=== PATIENT | male | born 1975 | race Asian ===

== ENCOUNTER 2020-07-24 08:32 | Outpatient (REF) | payer OTHER, SELFPAY | END 2020-07-24 08:33 | disposition home or self-care (01) | LOC: HO.LAB 08:32 | PROVIDERS: Visit Provider Internal Medicine | DX: Z20.828 Contact with and (suspected) exposure to other viral communicable diseases (principal) | CPT/HCPCS: 87635 ==

== ENCOUNTER 2021-05-07 07:47 | Outpatient (REF) | payer OTHER, SELFPAY ==
[2021-05-07 08:32] LABS: Hematocrit 38.8 % (42-52); Hemoglobin 12.7 g/dl (14.0-18.0); Mean Corpuscular HGB Conc 32.7 g/dl (31.0-36.0); Mean Corpuscular Hemoglobin 30.8 pg (27.0-33.0); Mean Corpuscular Volume 94.2 fL (80-98); Mean Platelet Volume 9.9 fL (9.4-12.4); Platelet Count 293 X10*3/uL (160-400); Red Blood Count 4.12 X10*6/uL (4.60-5.80); Red Cell Distribution Width 12.2 % (11.0-16.0); White Blood Count 5.1 X10*3/uL (4.8-10.8)
[2021-05-07 08:43] LABS: Estimated Average Glucose 111 mg/dL; Hemoglobin A1c % 5.5 %
[2021-05-07 08:54] LABS: Alanine Aminotransferase 14 U/L (0-40); Albumin Level 4.8 g/dL (3.5-5.0); Alkaline Phosphatase 46 U/L (39-117); Anion Gap 13 (12-20); Aspartate Amino Transferase 24 U/L (5-37); Bilirubin Total 0.3 mg/dL (0.0-1.0); Blood Urea Nitrogen 33 mg/dL (9-16); Calcium 10.1 mg/dL (8.4-10.2); Carbon Dioxide 26 mmol/L (22-29); Chloride 106 mmol/L (96-108); Cholesterol 224 mg/dL; Estimated Glomerular Filt Rate 55; Glucose Random 91 mg/dL (60-115); HDL Cholesterol 90 mg/dL; LDL Cholesterol Calculated 121 mg/dl; Potassium 4.5 mmol/L (3.3-5.1); Sodium 140 mmol/L (135-145); Total Protein 7.5 g/dL (6.5-8.0); Triglycerides 66 mg/dL
[2021-05-08 19:51] LABS: LDL Cholesterol Direct 111 mg/dL (<100)
== END 2021-05-07 07:48 | disposition home or self-care (01) ==
LOC: HO.LAB 07:47
PROVIDERS: Visit Provider Internal Medicine
DX: I10 Essential (primary) hypertension (principal)
CPT/HCPCS: 36415; 80053; 80061; 83036; 83721; 85027

== ENCOUNTER 2021-06-07 10:16 | Outpatient (REF) | payer OTHER, SELFPAY ==
[2021-06-07 11:37] LABS: Anion Gap 13 (12-20); Blood Urea Nitrogen 28 mg/dL (9-16); Calcium 9.8 mg/dL (8.4-10.2); Carbon Dioxide 25 mmol/L (22-29); Chloride 105 mmol/L (96-108); Estimated Glomerular Filt Rate > 60; Glucose Random 95 mg/dL (60-115); Potassium 4.4 mmol/L (3.3-5.1); Sodium 139 mmol/L (135-145)
[2021-06-07 11:42] LABS: Creatinine Urine 20.58 mg/dL; Microalbumin Urine < 5.0 mg/L; Sodium Urine Random < 20.0 mmol/L; Total Protein Urine Random < 7 mg/dL (<12)
== END 2021-06-07 10:17 | disposition home or self-care (01) ==
LOC: HO.LAB 10:16
PROVIDERS: PCP Nurse Practitioner; Visit Provider Internal Medicine
DX: I10 Essential (primary) hypertension (principal)
CPT/HCPCS: 36415; 80048; 82043; 84156; 84300

== ENCOUNTER 2022-09-14 07:27 | Outpatient (REF) | payer OTHER, SELFPAY ==
--- NOTE | ~2022-09-14 | MR_ITS ---
EXAMINATION: MR ANKLE WITHOUT CONTRAST, LEFT CLINICAL INFORMATION: Retrocalcaneal bursitis. The Achilles tendon. Evaluate for calcaneal stress fracture. COMPARISON: None TECHNIQUE: MRI of the left ankle is performed without contrast and high field MRI scanner. FINDINGS: SUBCUTANEOUS SOFT TISSUES: Normal. MUSCLES/TENDONS: Achilles: There is a small linear focus of increased signal in the central 3rd portion of the Achilles tendon at the calcaneal attachment. This measures approximately 1 mm transverse and 8.5 mm craniocaudal. There is some localized edema likely reactive at the level of this portion of the Achilles attachment. No fracture line. Otherwise there is some minimal heterogeneity throughout the Achilles tendon compatible with tendinosis. No additional focal abnormality. There is minimal overlying edema in the adjacent subcutaneous soft tissues. Findings compatible with a small focus of linear intrasubstance partial tearing of the Achilles at the calcaneal attachment with reactive edema in the calcaneus. PLANTAR FASCIA: Normal. NEUROVASCULAR STRUCTURES/TARSAL TUNNEL: Ligaments: Normal. BONE/CARTILAGE: Calcaneal edema as above. Otherwise bone and joints are unremarkable. MR/MR ankle LT wo con IMPRESSION: Small focal linear intrasubstance partial tear of the distal Achilles tendon at the calcaneal attachment. There is some localized edema in the calcaneus in this area of calcaneal attachment likely reactive to the tear. No fracture line demonstrated.
== END 2022-09-14 07:28 | disposition home or self-care (01) ==
LOC: HO.MRI 07:27
PROVIDERS: PCP Internal Medicine; Visit Provider Physician Assistant
DX: M77.52 Other enthesopathy of left foot and ankle (principal)
CPT/HCPCS: 73721

== ENCOUNTER 2023-01-04 08:45 | Outpatient (REF) | payer OTHER, SELFPAY ==
--- NOTE | ~2023-01-04 | XR_ITS ---
EXAMINATION: Left knee and bilateral knee standing. CLINICAL INDICATIONS: Pain. COMPARISON: None. TECHNIQUE: AP bilateral knee standing and left knee 2 views. FINDINGS: AP bilateral knee: There is minimal loss of medial compartment joint space but otherwise unremarkable. The lateral compartment joint space is normal. No bony abnormality seen. Left knee: The lateral compartment joint space is preserved. No bony erosive changes. The soft tissues are normal. XR/XR knee LT 2V IMPRESSION: Minimal loss of medial compartment joint space but otherwise unremarkable lateral knee compartment. The lateral and sunrise view left knee is unremarkable.
--- NOTE | ~2023-01-04 | MR_ITS ---
EXAMINATION: MR KNEE WITHOUT CONTRAST, LEFT CLINICAL INFORMATION: Effusion. Patient reports pain, swelling, injury. COMPARISON: X-ray 01/04/2023 TECHNIQUE: MRI of the knee without contrast was performed using routine sequences on a high-field scanner. FINDINGS: MENISCI: Medial Meniscus: Intact Lateral Meniscus: There is a horizontally oriented tear in the superior aspect of the body. Subjacent small parameniscal cyst. Degenerative signal in the anterior horn, with possible tear propagating into the anterior horn. Signal changes extend to the undersurface, from possible undersurface tearing. Small cystic focus anteriorly, suggestive of parameniscal cyst. Anterior root fissuring. LIGAMENTS: Cruciate: Increased signal diffusely in the ACL could reflect mucoid degeneration and/or sprain/partial tear. . Intact PCL. Collateral: Partial tear MCL, more prominently involving the proximal ligament extending to the level of the joint. There is prominent abnormal signal, ill-definition irregularity of the ligament, with edema in the medial soft tissues. LCL complex is intact. EXTENSOR MECHANISM: Intact ARTICULAR CARTILAGE/BONE: No significant cartilage loss in 3 compartments. No evidence of fracture. JOINT FLUID AND BURSAE: Moderate joint effusion. No significant Avendano's cyst.. MR/MR knee LT wo con IMPRESSION: 1. Tear of the body of the lateral meniscus. Degenerative signal in the anterior horn, with possible undersurface tearing. Anterior root fissuring. Small parameniscal cyst anteriorly. 2. ACL findings could reflect mucoid degeneration and/or sprain/partial tear. 3. Partial tear MCL. 4. Moderate joint effusion.
--- NOTE | ~2023-01-04 | XR_ITS ---
EXAMINATION: Left knee and bilateral knee standing. CLINICAL INDICATIONS: Pain. COMPARISON: None. TECHNIQUE: AP bilateral knee standing and left knee 2 views. FINDINGS: AP bilateral knee: There is minimal loss of medial compartment joint space but otherwise unremarkable. The lateral compartment joint space is normal. No bony abnormality seen. Left knee: The lateral compartment joint space is preserved. No bony erosive changes. The soft tissues are normal. XR/XR knee standing BI IMPRESSION: Minimal loss of medial compartment joint space but otherwise unremarkable lateral knee compartment. The lateral and sunrise view left knee is unremarkable.
[2023-01-04 16:15] LABS: Hematocrit 36.2 % (42.0-52.0); Hemoglobin 12.1 g/dl (14.0-18.0); Mean Corpuscular HGB Conc 33.4 g/dl (31.0-36.0); Mean Corpuscular Hemoglobin 31.3 pg (27.0-33.0); Mean Corpuscular Volume 93.5 fL (80.0-98.0); Mean Platelet Volume 9.8 fL (9.4-12.4); Platelet Count 342 X10*3/uL (160-400); Red Blood Count 3.87 X10*6/uL (4.60-5.80); Red Cell Distribution Width 12.6 % (11.0-16.0); White Blood Count 6.2 X10*3/uL (4.8-10.8)
[2023-01-04 16:19] LABS: Estimated Average Glucose 108 mg/dL; Hemoglobin A1c % 5.4 %
[2023-01-04 16:57] LABS: Alanine Aminotransferase 12 U/L (0-40); Albumin Level 4.3 g/dL (3.5-5.0); Alkaline Phosphatase 52 U/L (39-117); Anion Gap 13 (12-20); Aspartate Amino Transferase 18 U/L (5-37); Bilirubin Direct 0.2 mg/dL (0.0-0.5); Bilirubin Total 0.5 mg/dL (0.0-1.0); Blood Urea Nitrogen 25 mg/dL (9-16); Calcium 9.6 mg/dL (8.4-10.2); Carbon Dioxide 25 mmol/L (22-29); Chloride 106 mmol/L (96-108); Estimated Glomerular Filt Rate 40; Glucose Random 104 mg/dL (60-115); Potassium 3.9 mmol/L (3.3-5.1); Sodium 140 mmol/L (135-145); Total Protein 6.9 g/dL (6.5-8.0)
[2023-01-04 17:08] LABS: TSH reflex Free T4 0.88 uIU/mL (0.32-4.0)
== END 2023-01-04 08:46 | disposition home or self-care (01) ==
LOC: HO.HOSX 08:45
PROVIDERS: Absent Provider Internal Medicine; PCP Internal Medicine; Visit Provider Orthopaedic Surgery
DX: Z00.00 Encounter for general adult medical examination without abnormal findings (principal); M25.462 Effusion, left knee; M25.562 Pain in left knee; D64.9 Anemia, unspecified; R73.9 Hyperglycemia, unspecified
CPT/HCPCS: 36415; 73560; 73565; 73721; 80048; 80076; 83036; 84443; 85027

== ENCOUNTER 2023-03-12 10:30 | Outpatient (REF) | payer OTHER, SELFPAY ==
--- NOTE | ~2023-03-12 | US_ITS ---
EXAMINATION: ULTRASOUND RENAL WITH DOPPLER CLINICAL INFORMATION: Kidney cyst. Hypertension. COMPARISON: Renal ultrasound 11/16/2019. TECHNIQUE: Real-time grayscale, color Doppler, and duplex Doppler evaluation of the kidneys and renal vasculature was performed. FINDINGS: RENAL MEASUREMENTS: Right: 9.4 x 4.4 x 4.7 cm (Sag x AP x TV) Left: 10.6 x 6.5 x 5.7 cm (Sag x AP x TV) The renal parenchyma appears normal. No hydronephrosis or nephrolithiasis. Complex 2.3 cm cyst in the mid to upper left kidney has increased in size measuring 2.3 x 2.0 x 1.9 cm compared to 1.3 x 1.2 x 1.1 cm. DOPPLER INTERROGATION: AORTA: Mid aorta: 96 cm/sec RIGHT MAIN RENAL ARTERY: Proximal: 143 cm/sec Mid: 153 cm/sec Distal: 157 cm/sec LEFT MAIN RENAL ARTERY: Proximal: 152 cm/sec Mid: 143 cm/sec Distal: 132 cm/sec RENAL-AORTIC RATIO (RAR): Right: 1.63 Left: 1.58 SEGMENTAL RESISTIVE INDICES: Right: 0.56-0.61 Left: 0.48-0.56 RENAL VEINS: Right: Patent with normal waveform. Left: Patent with normal waveform. US/US renal doppler IMPRESSION: Increased size of complex cyst in the mid left kidney. Recommend CT or MR abdomen without and with contrast renal mass protocol for further characterization. No Doppler evidence of hemodynamically significant renal artery stenosis.
--- NOTE | ~2023-03-12 | US_ITS ---
EXAMINATION: ULTRASOUND RENAL WITH DOPPLER CLINICAL INFORMATION: Kidney cyst. Hypertension. COMPARISON: Renal ultrasound 11/16/2019. TECHNIQUE: Real-time grayscale, color Doppler, and duplex Doppler evaluation of the kidneys and renal vasculature was performed. FINDINGS: RENAL MEASUREMENTS: Right: 9.4 x 4.4 x 4.7 cm (Sag x AP x TV) Left: 10.6 x 6.5 x 5.7 cm (Sag x AP x TV) The renal parenchyma appears normal. No hydronephrosis or nephrolithiasis. Complex 2.3 cm cyst in the mid to upper left kidney has increased in size measuring 2.3 x 2.0 x 1.9 cm compared to 1.3 x 1.2 x 1.1 cm. DOPPLER INTERROGATION: AORTA: Mid aorta: 96 cm/sec RIGHT MAIN RENAL ARTERY: Proximal: 143 cm/sec Mid: 153 cm/sec Distal: 157 cm/sec LEFT MAIN RENAL ARTERY: Proximal: 152 cm/sec Mid: 143 cm/sec Distal: 132 cm/sec RENAL-AORTIC RATIO (RAR): Right: 1.63 Left: 1.58 SEGMENTAL RESISTIVE INDICES: Right: 0.56-0.61 Left: 0.48-0.56 RENAL VEINS: Right: Patent with normal waveform. Left: Patent with normal waveform. US/US retroperitoneal limited IMPRESSION: Increased size of complex cyst in the mid left kidney. Recommend CT or MR abdomen without and with contrast renal mass protocol for further characterization. No Doppler evidence of hemodynamically significant renal artery stenosis.
== END 2023-03-12 10:31 | disposition home or self-care (01) ==
LOC: HO.US 10:30
PROVIDERS: PCP Internal Medicine; Visit Provider Internal Medicine Nephrology
DX: N28.1 Cyst of kidney, acquired (principal); I10 Essential (primary) hypertension
CPT/HCPCS: 76775; 93975

== ENCOUNTER 2023-03-16 16:45 | Outpatient (REF) | payer OTHER, SELFPAY ==
[2023-03-16 17:57] LABS: Anion Gap 13 (12-20); Blood Urea Nitrogen 28 mg/dL (9-16); Calcium 9.8 mg/dL (8.4-10.2); Carbon Dioxide 26 mmol/L (22-29); Chloride 105 mmol/L (96-108); Estimated Glomerular Filt Rate 52; Potassium 4.4 mmol/L (3.3-5.1); Sodium 140 mmol/L (135-145)
== END 2023-03-16 16:46 | disposition home or self-care (01) ==
LOC: HO.LAB 16:45
PROVIDERS: Visit Provider Internal Medicine Nephrology
DX: I10 Essential (primary) hypertension (principal); N28.1 Cyst of kidney, acquired
CPT/HCPCS: 36415; 80051; 82310; 82565; 84520

== ENCOUNTER 2023-04-07 14:20 | Outpatient (REF) | payer OTHER, SELFPAY ==
[2023-04-07 15:29] LABS: Appearance Urine Clear; Color Urine Yellow; Glucose Urine UA Negative (Negative); Leukocyte Esterase Urine Negative (Negative); Nitrite Urine Negative (Negative); PH 6.5 (5.0-9.0); Urine Blood Negative (Negative); Urine Ketones Negative (Negative); Urine Protein Negative (Neg-Trace)
[2023-04-07 16:11] LABS: Anion Gap 13 (12-20); Blood Urea Nitrogen 26 mg/dL (9-16); Calcium 10.2 mg/dL (8.4-10.2); Carbon Dioxide 28 mmol/L (22-29); Chloride 105 mmol/L (96-108); Estimated Glomerular Filt Rate > 60; Potassium 4.1 mmol/L (3.3-5.1); Sodium 142 mmol/L (135-145)
[2023-04-07 16:14] LABS: Microalbum/Creatinine Ratio Ur 13.3 ug/mg cr; Total Protein Urine Random < 7 mg/dL (<12)
== END 2023-04-07 14:21 | disposition home or self-care (01) ==
LOC: HO.LAB 14:20
PROVIDERS: Visit Provider Internal Medicine Nephrology
DX: I10 Essential (primary) hypertension (principal)
CPT/HCPCS: 36415; 80051; 81003; 82043; 82310; 82565; 84156; 84520

== ENCOUNTER 2023-04-19 13:14 | Outpatient (REF) | payer OTHER, SELFPAY ==
[2023-04-19 13:32] LABS: MANUAL DIFF FLAG NO
[2023-04-19 13:40] LABS: Basophils Percent Auto 0.2 % (0-2); Eosinophils Percent Auto 0.9 % (0-4); Hematocrit 31.2 % (42.0-52.0); Hemoglobin 10.5 g/dl (14.0-18.0); Imm Gran Abs Auto 0.01 X10*3/uL (0.00-0.03); Imm Gran Pct Auto 0.2 % (0.0-0.4); Lymphocytes Absolute Auto 1.1 X10*3/uL (1.2-4.9); Lymphocytes Percent Auto 24.2 % (20-40); Mean Corpuscular HGB Conc 33.7 g/dl (31.0-36.0); Mean Corpuscular Hemoglobin 30.2 pg (27.0-33.0); Mean Corpuscular Volume 89.7 fL (80.0-98.0); Mean Platelet Volume 9.8 fL (9.4-12.4); Monocytes Absolute Auto 0.7 X10*3/uL (0.1-1.2); Monocytes Percent Auto 16.1 % (2-11); Neutrophils Absolute Auto 2.6 x10*3/uL (2.0-8.3); Neutrophils Percent Auto 58.4 % (45-73); Platelet Count 165 X10*3/uL (160-400); Red Blood Count 3.48 X10*6/uL (4.60-5.80); Red Cell Distribution Width 12.7 % (11.0-16.0); White Blood Count 4.5 X10*3/uL (4.8-10.8)
[2023-04-19 14:16] LABS: Erythrocyte Sedimentation Rate 51 MM/HR (0-15)
[2023-04-19 14:57] LABS: Alanine Aminotransferase 21 U/L (0-40); Albumin Level 3.9 g/dL (3.5-5.0); Alkaline Phosphatase 49 U/L (39-117); Anion Gap 15 (12-20); Aspartate Amino Transferase 21 U/L (5-37); Blood Urea Nitrogen 21 mg/dL (9-16); C Reactive Protein 10.28 mg/dL (< or = 0.50); Calcium 9.6 mg/dL (8.4-10.2); Carbon Dioxide 26 mmol/L (22-29); Chloride 101 mmol/L (96-108); Estimated Glomerular Filt Rate 53; Glucose Random 146 mg/dL (60-115); Sodium 138 mmol/L (135-145); Total Protein 7.3 g/dL (6.5-8.0)
[2023-04-19 17:27] LABS: Immature Retic Fraction 10.5 % (2.3-13.4); Retic HGB Equivalent 33.5 pg (30.0-35.0); Reticulocyte Percent 1.6 % (0.5-1.8); Reticulocytes Absolute 0.058 X10*6/uL (0.026-0.095)
[2023-04-19 18:16] LABS: Lactate Dehydrogenase 373 U/L (118-273)
[2023-04-21 21:44] LABS: Lyme Abs Screen <0.90 index
[2023-04-22 03:23] LABS: A. Phagocytphilium DNA,RT-PCR NOT DETECTED (NOT DETECTED); Babesia Microti DNA, RT-PCR DETECTED (NOT DETECTED); Borrelia Miyamotoi,DNA RT-PCR NOT DETECTED (NOT DETECTED); E.Chaffeensis DNA RT-PCR NOT DETECTED (NOT DETECTED); Lyme(Borrelia ssp)DNA RT-PCR NOT DETECTED (NOT DETECTED)
[2023-04-28 12:59] LABS: A. Phagocytophilum Ab IgG <1:64 (<1:64); A. Phagocytophilum Ab IgM <1:20 (<1:20); E. Chaffeensis Ab IgG <1:64 (<1:64); E. Chaffeensis Ab IgM <1:20 (<1:20)
== END 2023-04-19 13:15 | disposition home or self-care (01) ==
LOC: HO.LAB 13:14
PROVIDERS: PCP Internal Medicine; Visit Provider Family Medicine
DX: R50.9 Fever, unspecified (principal)
CPT/HCPCS: 36415; 80053; 83615; 85025; 85045; 85652; 86140; 86617; 86618; 86666; 86753; 87798; 87801

== ENCOUNTER 2023-04-20 21:23 | Emergency (ER) | payer OTHER, SELFPAY ==
[2023-04-20 21:28] VITALS: BP 158/101; PULSE 88; RESP 14; TEMP 36.9; O2SAT 98; BMI 23.1
--- NOTE | 2023-04-20 21:46 | ED.FEVER ---
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[employer], with no significant past medical history was hiking about a week ago in [place] since then notices fever malaise temperature max 100 degrees F started on doxycycline 3 days ago got better for a day then started having a fever again with increased malaise no tick bites no rash no joint pain no urinary complaints no sore throat no cough no muscular by Related Data Home Medications Medication Instructions Recorded Confirmed No Known Home Meds 01/04/23 01/04/23 Allergies Allergy/AdvReac Type Severity Reaction Status Date / Time No Known Allergies Allergy Verified 01/04/23 10:28 Review of Systems Review of Systems: Yes all other systems are reviewed and are negative [facility] Social History Social History Advance Directives: No Advance Directives Information Provided: No Current occupational status: employed Current occupation: MD Physical Exam Vital Signs: Vital Signs: Last Vital Signs Temp 98.5 F 04/20/23 21:28 Pulse 88 04/20/23 21:28 Resp 14 04/20/23 21:28 BP 158/101 H 04/20/23 21:28 Pulse Ox 98 04/20/23 21:28 O2 Del Method Nasal Cannula 04/20/23 21:28 BMI result Body Mass Index 23.1 Appearance: Alert. Oriented X3. No acute distress. Eyes: Pallor++ ENT: Pharynx normal. Oral Mucosa moist Neck: Normal inspection. Neck supple. CVS: Normal heart rate and rhythm. Pulses normal. Respiratory: No respiratory distress. Equal air entry bilateral, no wheezing/rales/rhonchi Abdomen: Soft and nontender. Bowel sounds are present, no mass palpable, no CVA tenderness Skin: Skin warm and dry. Normal skin color. Normal skin turgor. Extremities: No lower extremity edema. No calf tenderness Neuro: Oriented X 3. No motor deficit. No sensory deficit.No cerebellar signs , cranial nerves II-XII intact Medications Administered Discontinued Medications Generic Name Dose Route Start Last Admin Trade Name Freq PRN Reason Stop Dose Admin Sodium Chloride 1,000 mls @ 999 mls/hr 04/20/23 21:53 04/20/23 22:40 Ns IV 04/20/23 22:53 999 mls/hr .Q1H1M ONE Administration Medical Decision Making Medical Decision Making MDM Narrative: patient with low-grade fever of 1 week duration etiology not clear possible tick borne disease already on doxycycline patient had workup done as outpatient babesia smear was done patient will be following with Infectious Disease Lab Data [facility] Lab Attestation statement: I reviewed the patient's lab results. 04/20/23 22:19 04/20/23 22:19 Labs: Lab Results 04/20/23 04/20/23 04/20/23 Range/Units 22:19 22:19 22:19 WBC 4.6 L (4.8-10.8) X10*3/uL RBC 3.31 L (4.60-5.80) X10*6/uL Hgb 9.9 L (14.0-18.0) g/dl Hct 29.8 L (42.0-52.0) % MCV 90.0 (80.0-98.0) fL MCH 29.9 (27.0-33.0) pg MCHC 33.2 (31.0-36.0) g/dl RDW 12.6 (11.0-16.0) % Plt Count 151 L (160-400) X10*3/uL MPV 9.1 L (9.4-12.4) fL Immature Gran % (Auto) 0.2 (0.0-0.4) % Neut % (Auto) 44.0 L (45-73) % Lymph % (Auto) 34.5 (20-40) % [place] % (Auto) 20.2 H (2-11) % Eos % (Auto) 0.9 (0-4) % Baso % (Auto) 0.2 (0-2) % Lymph # (Auto) 1.6 (1.2-4.9) X10*3/uL [place] # (Auto) 0.9 (0.1-1.2) X10*3/uL Eos # (Auto) 0.0 (0.0-0.4) X10*3/uL Baso # (Auto) 0.0 (0.0-0.2) X10*3/uL Abs Immat Gran (auto) 0.01 (0.00-0.03) X10*3/uL Absolute Neuts (auto) 2.0 (2.0-8.3) x10*3/uL Absolute Nucleated RBC 0.000 (0.0-0.012) X10*3/uL Nucleated RBC % (auto) 0.0 (0.0-0.2) /100WBC Smear Tech's Comments VERIFIED Sodium 139 (135-145) mmol/L Potassium 4.3 (3.3-5.1) mmol/L Chloride 104 (96-108) mmol/L Carbon Dioxide 24 (22-29) mmol/L Anion Gap 15 (12-20) BUN 25 H (9-16) mg/dL Creatinine 1.25 (0.5-1.4) mg/dL Estim Creat Clear Calc 69.9 Estimated GFR > 60 Random Glucose 116 H (60-115) mg/dL Lactic Acid 0.5 (0.5-2.0) mmol/L Calcium 9.8 (8.4-10.2) mg/dL Total Bilirubin 0.9 (0.0-1.0) mg/dL AST 24 (5-37) U/L ALT 22 (0-40) U/L Alkaline Phosphatase 56 (39-117) U/L Total Creatine Kinase 79 (38-174) U/L Total Protein 7.7 (6.5-8.0) g/dL Albumin 4.0 (3.5-5.0) g/dL Urine Color Urine Appearance Urine pH (5.0-9.0) Ur Specific [place] (1.005-1.025) Urine Protein (Neg-Trace) mg/dL Urine Glucose (UA) (Negative) mg/dL Urine Ketones (Negative) mg/dL Urine Blood (Negative) Urine Nitrite (Negative) Ur Leukocyte Esterase (Negative) 04/20/23 Range/Units 23:16 WBC (4.8-10.8) X10*3/uL RBC (4.60-5.80) X10*6/uL Hgb (14.0-18.0) g/dl Hct (42.0-52.0) % MCV (80.0-98.0) fL MCH (27.0-33.0) pg MCHC (31.0-36.0) g/dl RDW (11.0-16.0) % Plt Count (160-400) X10*3/uL MPV (9.4-12.4) fL Immature Gran % (Auto) (0.0-0.4) % Neut % (Auto) (45-73) % Lymph % (Auto) (20-40) % [place] % (Auto) (2-11) % Eos % (Auto) (0-4) % Baso % (Auto) (0-2) % Lymph # (Auto) (1.2-4.9) X10*3/uL [place] # (Auto) (0.1-1.2) X10*3/uL Eos # (Auto) (0.0-0.4) X10*3/uL Baso # (Auto) (0.0-0.2) X10*3/uL Abs Immat Gran (auto) (0.00-0.03) X10*3/uL Absolute Neuts (auto) (2.0-8.3) x10*3/uL Absolute Nucleated RBC (0.0-0.012) X10*3/uL Nucleated RBC % (auto) (0.0-0.2) /100WBC Smear Tech's Comments Sodium (135-145) mmol/L Potassium (3.3-5.1) mmol/L Chloride (96-108) mmol/L Carbon Dioxide (22-29) mmol/L Anion Gap (12-20) BUN (9-16) mg/dL Creatinine (0.5-1.4) mg/dL Estim Creat Clear Calc Estimated GFR Random Glucose (60-115) mg/dL Lactic Acid (0.5-2.0) mmol/L Calcium (8.4-10.2) mg/dL Total Bilirubin (0.0-1.0) mg/dL AST (5-37) U/L ALT (0-40) U/L Alkaline Phosphatase (39-117) U/L Total Creatine Kinase (38-174) U/L Total Protein (6.5-8.0) g/dL Albumin (3.5-5.0) g/dL Urine Color Yellow Urine Appearance Clear Urine pH 6.0 (5.0-9.0) Ur Specific [place] <= 1.005 (1.005-1.025) Urine Protein Negative (Neg-Trace) mg/dL Urine Glucose (UA) Negative (Negative) mg/dL Urine Ketones Negative (Negative) mg/dL Urine Blood Negative (Negative) Urine Nitrite Negative (Negative) Ur Leukocyte Esterase Negative (Negative) Discharge Plan Discharge Clinical Impression: Fever Patient Disposition: Home, Self-Care Instructions: Fever in Adults (ED) Additional Instructions: Continue doxycycline and follow up with infectious disease Prescriptions: No Action No Known Home Meds
[2023-04-20 22:35] LABS: Basophils Percent Auto 0.2 % (0-2); Eosinophils Percent Auto 0.9 % (0-4); Hematocrit 29.8 % (42.0-52.0); Hemoglobin 9.9 g/dl (14.0-18.0); Imm Gran Abs Auto 0.01 X10*3/uL (0.00-0.03); Imm Gran Pct Auto 0.2 % (0.0-0.4); Lymphocytes Absolute Auto 1.6 X10*3/uL (1.2-4.9); Lymphocytes Percent Auto 34.5 % (20-40); MANUAL DIFF FLAG SCAN; Mean Corpuscular HGB Conc 33.2 g/dl (31.0-36.0); Mean Corpuscular Hemoglobin 29.9 pg (27.0-33.0); Mean Platelet Volume 9.1 fL (9.4-12.4); Monocytes Absolute Auto 0.9 X10*3/uL (0.1-1.2); Monocytes Percent Auto 20.2 % (2-11); Platelet Count 151 X10*3/uL (160-400); Red Blood Count 3.31 X10*6/uL (4.60-5.80); Red Cell Distribution Width 12.6 % (11.0-16.0); SCAN SMEAR FLAG 1; White Blood Count 4.6 X10*3/uL (4.8-10.8)
[2023-04-20] MEDS: 0.9 % Sodium Chloride 1,000 ML 999 ML IV (22:40)
[2023-04-20 22:47] LABS: Alanine Aminotransferase 22 U/L (0-40); Alkaline Phosphatase 56 U/L (39-117); Anion Gap 15 (12-20); Aspartate Amino Transferase 24 U/L (5-37); Bilirubin Total 0.9 mg/dL (0.0-1.0); Blood Urea Nitrogen 25 mg/dL (9-16); Calcium 9.8 mg/dL (8.4-10.2); Carbon Dioxide 24 mmol/L (22-29); Chloride 104 mmol/L (96-108); Creatinine Clr Calc Pharmacy 69.9; Estimated Glomerular Filt Rate > 60; Glucose Random 116 mg/dL (60-115); Potassium 4.3 mmol/L (3.3-5.1); Sodium 139 mmol/L (135-145); Total Protein 7.7 g/dL (6.5-8.0)
[2023-04-20 22:50] LABS: Lactic Acid 0.5 mmol/L (0.5-2.0)
--- NOTE | 2023-04-20 23:02 | PC.NURSE ---
2nd culture obtained, 1L NS infusing per order
[2023-04-20 23:15] LABS: SLIDE REVIEW VERIFIED
[2023-04-20 23:23] LABS: Appearance Urine Clear; Color Urine Yellow; Glucose Urine UA Negative (Negative); Leukocyte Esterase Urine Negative (Negative); Nitrite Urine Negative (Negative); Specific Gravity - Urine <= 1.005 (1.005-1.025); Urine Blood Negative (Negative); Urine Ketones Negative (Negative); Urine Protein Negative (Neg-Trace)
== END 2023-04-21 00:16 | disposition home or self-care (01) ==
PROVIDERS: Emergency Provider Internal Medicine; PCP Internal Medicine
DX: R50.9 Fever, unspecified (principal); B60.00 Babesiosis, unspecified
CPT/HCPCS: 36415; 80053; 81003; 82550; 83605; 85025; 86753; 87040; 87076; 87205; 87207; 99283

== ENCOUNTER 2023-04-26 16:27 | Outpatient (REF) | payer OTHER, SELFPAY ==
[2023-04-26 16:50] LABS: MANUAL DIFF FLAG NO
[2023-04-26 17:04] LABS: Basophils Percent Auto 0.6 % (0-2); Eosinophils Absolute Auto 0.2 X10*3/uL (0.0-0.4); Eosinophils Percent Auto 3.4 % (0-4); Hematocrit 28.6 % (42.0-52.0); Hemoglobin 9.7 g/dl (14.0-18.0); Imm Gran Abs Auto 0.05 X10*3/uL (0.00-0.03); Immature Retic Fraction 16.6 % (2.3-13.4); Lymphocytes Absolute Auto 1.9 X10*3/uL (1.2-4.9); Lymphocytes Percent Auto 38.3 % (20-40); Mean Corpuscular HGB Conc 33.9 g/dl (31.0-36.0); Mean Corpuscular Hemoglobin 30.6 pg (27.0-33.0); Mean Corpuscular Volume 90.2 fL (80.0-98.0); Mean Platelet Volume 8.8 fL (9.4-12.4); Monocytes Absolute Auto 0.5 X10*3/uL (0.1-1.2); Monocytes Percent Auto 9.1 % (2-11); Neutrophils Absolute Auto 2.4 x10*3/uL (2.0-8.3); Neutrophils Percent Auto 47.6 % (45-73); Platelet Count 370 X10*3/uL (160-400); Red Blood Count 3.17 X10*6/uL (4.60-5.80); Red Cell Distribution Width 13.1 % (11.0-16.0); Retic HGB Equivalent 36.9 pg (30.0-35.0); Reticulocyte Percent 3.2 % (0.5-1.8); Reticulocytes Absolute 0.103 X10*6/uL (0.026-0.095); White Blood Count 4.9 X10*3/uL (4.8-10.8)
[2023-04-26 18:37] LABS: Alanine Aminotransferase 35 U/L (0-40); Albumin Level 4.1 g/dL (3.5-5.0); Alkaline Phosphatase 57 U/L (39-117); Anion Gap 13 (12-20); Aspartate Amino Transferase 38 U/L (5-37); Bilirubin Total 0.4 mg/dL (0.0-1.0); Blood Urea Nitrogen 23 mg/dL (9-16); Calcium 9.8 mg/dL (8.4-10.2); Carbon Dioxide 26 mmol/L (22-29); Chloride 105 mmol/L (96-108); Estimated Glomerular Filt Rate > 60; Glucose Random 104 mg/dL (60-115); Iron 97 mcg/dL (45-160); Lactate Dehydrogenase 448 U/L (118-273); Percent Iron Saturation 32 % (15-50); Potassium 4.3 mmol/L (3.3-5.1); Sodium 140 mmol/L (135-145); Total Iron Binding Capacity 303 mcg/dL (228-428); Total Protein 7.7 g/dL (6.5-8.0); Unsaturated Iron Binding 206 ug/dL
[2023-04-26 19:39] LABS: Ferritin 1929 ng/mL (20-250)
== END 2023-04-26 16:28 | disposition home or self-care (01) ==
LOC: HO.LAB 16:27
PROVIDERS: Internal Medicine; Visit Provider Family Medicine
DX: D64.9 Anemia, unspecified (principal); B60.00 Babesiosis, unspecified
CPT/HCPCS: 36415; 80053; 82728; 83540; 83615; 85025; 85045; 87207

== ENCOUNTER 2023-04-28 12:34 | Outpatient (REF) | payer OTHER, SELFPAY | END 2023-04-28 12:35 | disposition home or self-care (01) | LOC: HO.LAB 12:34 | PROVIDERS: PCP Internal Medicine; Visit Provider Family Medicine | DX: N28.1 Cyst of kidney, acquired (principal); B60.00 Babesiosis, unspecified | CPT/HCPCS: 36415; 87207 ==

== ENCOUNTER 2023-04-28 14:34 | Outpatient (AMB) | payer OTHER, SELFPAY ==
--- NOTE | 2023-04-28 12:55 | A.OFFVIS_ITS ---
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 He is a 48-year-old male, presents to the clinic today for evaluation of cyst of kidney. 04/28/23-- Dr. Henson states he has known about renal cyst since 2014. Significant PMH - Htn, normocytic Anemia. He was recently evaluated in the ED on 04/20/23 for fever. He had been hiking in [place] and thought to have possibly gotten a tick bite and was placed on doxycycline and was referred to follow up with infectious disease. He states further testing was done and he has completed other treatment regimens with improvement in symptoms other than anemia. He states the diagnosis of anemia was worked up by hematology in 2014. At that time, a renal ultrasound was done on 05/22/2015 that noted a 2.8 cm cyst containing a septation in the left kidney. A follow-up CAT scan was done on 05/27/2015. It measured the cystic lesion at 2.7 x 2.1. The report states that there was a cystic mass containing several septations and a calcification measuring up to 6 x 3 mm. The total size of the cyst measured at 2.9 cm. Impression was Bosniak type 2F cyst superior pole of the left kidney containing septa. He has brought in reports that I have reviewed. He stated that there were some interim ultrasounds done that did not note any significant change to the cyst and 1 ultrasound even was done and did not visualize the cyst which was specifically 11/16/19 a renal ultrasound was done and was unremarkable (likely a cyst was missed at that time). The patient otherwise denies any urinary symptoms. He denies any family history of prostate cancer. Additional Results reviewed -- Ultrasound from 03/12/23-- A 2.3 cm of complex cyst in the mid to upper left kidney which has increased in size compared to a renal ultrasound from November of 2019. At that time, it was 1.3 x 1.2 cm. Evaluation today-- UA-- Negative leukocytes. Negative blood. Plan: I am going to obtain a CAT scan with and without IV contrast renal mass protocol. Further management pending CAT scan results. [facility] Surgical History No pertinent past surgical history Family History Mother No problems noted. Father No problems noted. Social History Current occupational status: employed Current occupation: MD Review of Systems Const All systems reviewed & are unremarkable except as noted in HPI and below Reports no additional complaints Eyes Reports no additional complaints ENT Reports no additional complaints Card Denies dyspnea Resp Denies cough and Denies dyspnea GI Reports no additional complaints Musc Reports no additional complaints Skin/Breast Denies rash and Denies unusual bruising Neuro Reports no additional complaints Psych Reports no additional complaints Endo Reports no additional complaints Anthony/Lymph Details: anemia Reports no additional complaints Aller/Immun Reports no additional complaints Physical Exam Const General: healthy appearing, no acute distress and well developed Orientation/consciousness: patient oriented x3 HEENT Head: Yes normocephalic and Yes atraumatic Eyes Conjunctivae: conjunctivae normal Neck Neck: Yes normal visual inspection Chest Chest palpation & inspection: normal inspection of the chest Resp Effort & Inspection: normal respiratory effort Cardio Rate: regular rate GI Inspection: Yes normal to inspection Skin General skin exam: no rashes or lesions noted Neuro General: patient oriented x3 Extrem General: No pedal edema Psych Appearance: grossly normal Affect: normal affect Results Reviewed Results Reviewed: Date of Service: 03/12/23 EXAMINATION: ULTRASOUND RENAL WITH DOPPLER CLINICAL INFORMATION: Kidney cyst. Hypertension. COMPARISON: Renal ultrasound 11/16/2019. FINDINGS: RENAL MEASUREMENTS: Right: 9.4 x 4.4 x 4.7 cm (Sag x AP x TV) Left: 10.6 x 6.5 x 5.7 cm (Sag x AP x TV) The renal parenchyma appears normal. No hydronephrosis or nephrolithiasis. Complex 2.3 cm cyst in the mid to upper left kidney has increased in size measuring 2.3 x 2.0 x 1.9 cm compared to 1.3 x 1.2 x 1.1 cm. DOPPLER INTERROGATION: AORTA: Mid aorta: 96 cm/sec RIGHT MAIN RENAL ARTERY: Proximal: 143 cm/sec Mid: 153 cm/sec Distal: 157 cm/sec LEFT MAIN RENAL ARTERY: Proximal: 152 cm/sec Mid: 143 cm/sec Distal: 132 cm/sec RENAL-AORTIC RATIO (RAR): Right: 1.63 Left: 1.58 SEGMENTAL RESISTIVE INDICES: Right: 0.56-0.61 Left: 0.48-0.56 RENAL VEINS: Right: Patent with normal waveform. Left: Patent with normal waveform. IMPRESSION: Increased size of complex cyst in the mid left kidney. Recommend CT or MR abdomen without and with contrast renal mass protocol for further characterization. ? No Doppler evidence of hemodynamically significant renal artery stenosis. Assessment & Plan Assessment & Plan (1) Complex renal cyst: Code(s): N28.1 - Cyst of kidney, acquired Plan I am going to obtain a CAT scan with and without IV contrast renal mass protocol. Further management pending CAT scan results. Orders: Orders CT abdomen wo/w IV con 04/28/23 N28.1 - Cyst of kidney, acquired Patient Instructions: The patient had an opportunity to ask questions regarding treatment plan. All questions were answered. Imaging, Laboratory studies and physical exam results were discussed and reviewed in detail. No major barriers to understanding were identified. The patient expressed understanding and agreement with the above treatment plan. The patient is aware they should contact our office by phone for worsening of their current condition or the appearance of new symptoms. Compliance is encouraged with any medications and followup testing that is ordered. It is a privilege to be allowed the opportunity to participate in the urologic care of your patient. If you have any questions or concerns regarding treatment for the above conditions please do not hesitate to contact me. The office telephone contact is [phone]. This note is constructed in part using voice recognition software. While every effort has been made to ensure accuracy switchboard troubleshooter errors may have been included. Yours sincerely, Zarina Jaime MD Coding Level of Care Code New Pt Level 4 (41422) Diagnoses Complex renal cyst N28.1
== END 2023-04-28 15:52 | disposition home or self-care (01) ==
PROVIDERS: PCP Internal Medicine; Visit Provider Urology
DX: N28.1 Cyst of kidney, acquired (principal)
CPT/HCPCS: 99204

== ENCOUNTER 2023-05-31 08:07 | Outpatient (REF) | payer OTHER, SELFPAY ==
--- NOTE | ~2023-05-31 | CT_ITS ---
EXAMINATION: CT ABDOMEN WITHOUT AND WITH CONTRAST CLINICAL INFORMATION: Renal cyst. COMPARISON: Previous renal ultrasound most recent March 2023. TECHNIQUE: Contiguous axial thin section helical images of the abdomen were performed before and after the administration of oral contrast and 85 mL of Omnipaque 350 intravenous contrast. The data set was reformatted in the coronal and sagittal planes and reviewed on an independent workstation. This CT examination was performed using dose optimization techniques as appropriate, variously including the following: *Automated exposure control *Adjustment of mA and/or kV according to patient size (this includes techniques or standardized protocols for targeted exams where dose is matched to indication/reason for exam; i.e. extremities or head) *Use of iterative reconstruction technique DLP: 269 mGy-cm FINDINGS: LUNG BASES: Normal. LIVER, GALLBLADDER, AND BILIARY TREE: Small liver cysts measuring 7 mm high in the dome of the right lobe and 8 mm in the lateral segment of the left lobe of the liver. No other focal liver lesion. Normal gallbladder. No biliary duct dilatation. PANCREAS: Normal. SPLEEN: Normal. ADRENAL GLANDS AND KIDNEYS: There is a 2.3 cm cyst in the upper pole of the left kidney. Hounsfield units precontrast measure 10. Hounsfield units postcontrast measure 13 with no appreciable enhancement. This has a single thin nonenhancing septation. This is suggestive of a Bosniak type 2F cyst. According to best practice criteria, no imaging followup would be recommended. However, cyst is increased in size from 1.3 cm December 2018 and there is a newly appreciated septation and follow up should be determined as clinically indicated. Kidneys are otherwise normal. The adrenal glands are normal. BOWEL LOOPS: Dual throughout the colon suggestive of constipation. LYMPH NODES: Normal. VASCULAR: Unremarkable. BONES: Normal. CT/CT abdomen wo/w IV con IMPRESSION: 2.3 cm simple Bosniak type 2F cyst in the upper pole of the left kidney. According to best practice criteria, no imaging followup would be recommended. However, cyst is increased in size from prior exam from 2019 with newly appreciated septation and followup should be determined on a clinical basis. Fleischner guidelines were followed.
[2023-05-31] MEDS: iohexoL 350 MG/ML 100 ML INFUS..BTL 85 ML IV (08:50)
== END 2023-05-31 08:08 | disposition home or self-care (01) ==
LOC: HO.CT 08:07
PROVIDERS: Visit Provider Urology
DX: N28.1 Cyst of kidney, acquired (principal)
CPT/HCPCS: 74170; Q9967

== ENCOUNTER 2023-06-21 16:32 | Outpatient (REF) | payer OTHER, SELFPAY ==
[2023-06-21 16:55] LABS: MANUAL DIFF FLAG NO
[2023-06-21 17:26] LABS: Basophils Absolute Auto 0.1 X10*3/uL (0.0-0.2); Eosinophils Absolute Auto 0.4 X10*3/uL (0.0-0.4); Eosinophils Percent Auto 5.8 % (0-4); Hematocrit 37.7 % (42.0-52.0); Hemoglobin 12.7 g/dl (14.0-18.0); Imm Gran Abs Auto 0.01 X10*3/uL (0.00-0.03); Imm Gran Pct Auto 0.1 % (0.0-0.4); Immature Retic Fraction 8.9 % (2.3-13.4); Lymphocytes Absolute Auto 1.9 X10*3/uL (1.2-4.9); Lymphocytes Percent Auto 27.3 % (20-40); Mean Corpuscular HGB Conc 33.7 g/dl (31.0-36.0); Mean Corpuscular Hemoglobin 31.4 pg (27.0-33.0); Mean Corpuscular Volume 93.1 fL (80.0-98.0); Mean Platelet Volume 9.8 fL (9.4-12.4); Monocytes Absolute Auto 0.5 X10*3/uL (0.1-1.2); Monocytes Percent Auto 7.2 % (2-11); Neutrophils Absolute Auto 4.1 x10*3/uL (2.0-8.3); Neutrophils Percent Auto 58.6 % (45-73); Platelet Count 273 X10*3/uL (160-400); Red Blood Count 4.05 X10*6/uL (4.60-5.80); Red Cell Distribution Width 12.4 % (11.0-16.0); Retic HGB Equivalent 35.5 pg (30.0-35.0); Reticulocyte Percent 1.2 % (0.5-1.8); Reticulocytes Absolute 0.049 X10*6/uL (0.026-0.095)
[2023-06-21 17:55] LABS: Iron 48 mcg/dL (45-160); Lactate Dehydrogenase 191 U/L (118-273); Percent Iron Saturation 15 % (15-50); Total Iron Binding Capacity 326 mcg/dL (228-428); Unsaturated Iron Binding 278 ug/dL
[2023-06-21 18:10] LABS: Ferritin 149 ng/mL (20-250)
[2023-06-21 18:36] LABS: Folate 12.8 ng/mL (> or = 4.0); Vitamin B12 821 pg/mL (200-900)
== END 2023-06-21 16:33 | disposition home or self-care (01) ==
LOC: HO.LAB 16:32
PROVIDERS: PCP Internal Medicine; Visit Provider Family Medicine
DX: D64.9 Anemia, unspecified (principal)
CPT/HCPCS: 36415; 82607; 82728; 82746; 83540; 83615; 85025; 85045

== ENCOUNTER 2023-09-09 07:52 | Outpatient (REF) | payer OTHER, SELFPAY ==
[2023-09-09 08:35] LABS: MANUAL DIFF FLAG NO
[2023-09-09 09:09] LABS: Basophils Absolute Auto 0.1 X10*3/uL (0.0-0.2); Basophils Percent Auto 1.2 % (0-2); Eosinophils Absolute Auto 0.4 X10*3/uL (0.0-0.4); Eosinophils Percent Auto 7.6 % (0-4); Hematocrit 38.9 % (42.0-52.0); Imm Gran Abs Auto 0.02 X10*3/uL (0.00-0.03); Imm Gran Pct Auto 0.4 % (0.0-0.4); Lymphocytes Absolute Auto 1.5 X10*3/uL (1.2-4.9); Lymphocytes Percent Auto 28.6 % (20-40); Mean Corpuscular HGB Conc 33.4 g/dl (31.0-36.0); Mean Corpuscular Hemoglobin 30.5 pg (27.0-33.0); Mean Corpuscular Volume 91.3 fL (80.0-98.0); Monocytes Absolute Auto 0.4 X10*3/uL (0.1-1.2); Monocytes Percent Auto 7.2 % (2-11); Neutrophils Absolute Auto 2.8 x10*3/uL (2.0-8.3); Platelet Count 276 X10*3/uL (160-400); Red Blood Count 4.26 X10*6/uL (4.60-5.80); Red Cell Distribution Width 12.5 % (11.0-16.0); White Blood Count 5.1 X10*3/uL (4.8-10.8)
[2023-09-09 09:14] LABS: Estimated Average Glucose 114 mg/dL; Hemoglobin A1c % 5.6 % (<6.0)
[2023-09-09 09:27] LABS: Alanine Aminotransferase 20 U/L (0-40); Albumin Level 4.4 g/dL (3.5-5.0); Alkaline Phosphatase 56 U/L (39-117); Anion Gap 11 (12-20); Aspartate Amino Transferase 23 U/L (5-37); Bilirubin Total 0.5 mg/dL (0.0-1.0); Blood Urea Nitrogen 27 mg/dL (9-16); Calcium 9.7 mg/dL (8.4-10.2); Carbon Dioxide 29 mmol/L (22-29); Chloride 104 mmol/L (96-108); Cholesterol 199 mg/dL (<200); Estimated Glomerular Filt Rate > 60; Glucose Fasting 85 mg/dL (60-99); HDL Cholesterol 80 mg/dL (>40); LDL Cholesterol Calculated 110 mg/dL (<100); Sodium 140 mmol/L (135-145); Total Protein 7.3 g/dL (6.5-8.0); Triglycerides 49 mg/dL (<150)
== END 2023-09-09 07:53 | disposition home or self-care (01) ==
LOC: HO.LAB 07:52
PROVIDERS: Visit Provider Family Medicine
DX: I10 Essential (primary) hypertension (principal); D64.9 Anemia, unspecified
CPT/HCPCS: 36415; 80053; 80061; 83036; 85025

== ENCOUNTER 2024-05-08 12:29 | Outpatient (REF) | payer OTHER, SELFPAY ==
--- NOTE | ~2024-05-08 | US_ITS ---
EXAMINATION: US RETROPERITONEAL LIMITED (RENAL ONLY) CLINICAL INFORMATION: Cyst of kidney, acquired. COMPARISON: CT abdomen 05/31/2023. Ultrasound renal Doppler 03/12/2023. Ultrasound retroperitoneal 03/12/2023. TECHNIQUE: Real-time imaging of the kidneys. Limited visualization due to bowel gas. FINDINGS: RIGHT KIDNEY: 9.2 x 5.2 x 3.7 cm (SAG x AP x TRV). No hydronephrosis. No renal calculi. Renal cortical thickness is normal. Limited visualization. LEFT KIDNEY: 10.3 x 6.2 x 5.0 cm (SAG x AP x TRV). No hydronephrosis. No renal calculi. Renal cortical thickness is normal. Limited visualization. Left renal 2.4 x 2.2 x 1.6 cm midpole complex cyst with septations measured 2.3 x 2.0 x 1.9 cm on 03/12/2023, and 1.3 x 1.2 x 1.2 cm on 12/17/2018. This was characterized as a 2.3 cm simple Bosniak type II-F cyst in the upper pole of the left kidney on CT abdomen and pelvis of 05/31/2023. US/US renal BI IMPRESSION: Left renal 2.4 x 2.2 x 1.6 cm mid pole complex cyst with septations measured 2.3 x 2.0 x 1.9 cm on ultrasound of 03/12/2023, and 1.3 x 1.2 x 1.2 cm on ultrasound of 12/17/2018. This was characterized as a 2.3 cm simple Bosniak type II-F cyst in the upper pole of the left kidney on CT abdomen and pelvis of 05/31/2023. Given the increase in time since exam since 2019 and more recently appreciated septations, continued follow-up ultrasound should be considered.
== END 2024-05-08 12:30 | disposition home or self-care (01) ==
LOC: HO.US 12:29
PROVIDERS: PCP Internal Medicine; Visit Provider Urology
DX: N28.1 Cyst of kidney, acquired (principal)
CPT/HCPCS: 76775

== ENCOUNTER 2024-09-30 10:38 | Outpatient (REF) | payer OTHER, SELFPAY ==
[2024-09-30 10:48] LABS: MANUAL DIFF FLAG NO
[2024-09-30 11:15] LABS: Basophils Absolute Auto 0.1 X10*3/uL (0.0-0.2); Basophils Percent Auto 1.1 % (0-2); Eosinophils Absolute Auto 0.1 X10*3/uL (0.0-0.4); Eosinophils Percent Auto 2.4 % (0-4); Hematocrit 38.3 % (42.0-52.0); Hemoglobin 12.9 g/dl (14.0-18.0); Imm Gran Abs Auto 0.01 X10*3/uL (0.00-0.03); Imm Gran Pct Auto 0.2 % (0.0-0.4); Lymphocytes Absolute Auto 1.6 X10*3/uL (1.2-4.9); Lymphocytes Percent Auto 34.1 % (20-40); Mean Corpuscular HGB Conc 33.7 g/dl (31.0-36.0); Mean Corpuscular Hemoglobin 31.2 pg (27.0-33.0); Mean Corpuscular Volume 92.7 fL (80.0-98.0); Mean Platelet Volume 9.7 fL (9.4-12.4); Monocytes Absolute Auto 0.4 X10*3/uL (0.1-1.2); Monocytes Percent Auto 8.5 % (2-11); Neutrophils Absolute Auto 2.5 x10*3/uL (2.0-8.3); Neutrophils Percent Auto 53.7 % (45-73); Platelet Count 283 X10*3/uL (160-400); Red Blood Count 4.13 X10*6/uL (4.60-5.80); Red Cell Distribution Width 12.3 % (11.0-16.0); White Blood Count 4.6 X10*3/uL (4.8-10.8)
[2024-09-30 11:26] LABS: Estimated Average Glucose 108 mg/dL; Hemoglobin A1C 118.6355 umol/L; Hemoglobin A1c % 5.4 % (<6.0); Total Hemoglobin (HGBA1C) 3356.3605 umol/L
[2024-09-30 11:58] LABS: Anion Gap 13 (12-20); Blood Urea Nitrogen 34 mg/dL (9-16); Calcium 10.2 mg/dL (8.4-10.2); Carbon Dioxide 28 mmol/L (22-29); Chloride 106 mmol/L (96-108); Estimated Glomerular Filt Rate > 60; Glucose Random 97 mg/dL (60-115); Potassium 4.3 mmol/L (3.3-5.1); Sodium 143 mmol/L (135-145); Uric Acid 7.6 mg/dL (3.4-7.0)
== END 2024-09-30 10:39 | disposition home or self-care (01) ==
LOC: HO.LAB 10:38
PROVIDERS: PCP Internal Medicine; Visit Provider Family Medicine
DX: I10 Essential (primary) hypertension (principal); D64.9 Anemia, unspecified; Z13.1 Encounter for screening for diabetes mellitus
CPT/HCPCS: 36415; 80048; 83036; 84550; 85025

== ENCOUNTER 2025-01-01 09:29 | Emergency (ER) | payer OTHER, SELFPAY ==
--- NOTE | ~2025-01-01 | XR_ITS ---
EXAMINATION: XR KNEE 4 OR MORE VIEWS LEFT HISTORY: pain, swelling, cannot flex COMPARISON: Comparison is made with the prior examination dated 01/04/2023. FINDINGS: Four views of the left knee are submitted. Osseous mineralization is normal. There is no fracture or dislocation. The joint spaces are preserved. The soft tissues are unremarkable. There is no joint effusion. XR/XR knee LT 4V IMPRESSION: Unremarkable examination of the left knee. Electronically signed by: Joe Angel MD 01/01/2025 10:18 AM EDT
[2025-01-01 09:39] VITALS: BP 178/94; PULSE 72; RESP 18; TEMP 35.9; O2SAT 99; BMI 21.8
--- NOTE | 2025-01-01 09:41 | ED.LOWEXIN ---
HPI - Extremity Injury (Lower) General Chief Complaint: Extremity Injury, Lower Stated Complaint: l knee pain Time Seen by Provider: 01/01/25 09:40 Source: patient Mode of arrival: ambulatory Limitations: no limitations History of Present Illness ED Provider: JANAY LOPEZ PA-C HPI Narrative: 49 year old male presents to the ED today for evaluation of left knee pain/ swelling x4 days. He reports symptoms came on gradually. He cannot recall any moment where he experienced sudden onset of pain. Pain is primarily around the patella. Reports pain and difficulty with flexion of the knee. Admits to hx of MCL tear to that same knee 2 years ago. He has since followed up with ortho and the knee has healed well. He states he is a runner and has been running on the LE without issue until 4 days ago. He reports taking Motrin yesterday. 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 He lives in the [facility]. He is not aware of any recent tick or insect bites. He denies fever, chills, numbness/tingling/weakness of the LLE, rashes. Related Data Home Medications ?Medication ?Instructions ?Recorded ?Confirmed amlodipine 2.5 mg tablet 2.5 mg PO DAILY 04/28/23 Allergies Allergy/AdvReac Type Severity Reaction Status Date / Time No Known Allergies Allergy Verified 01/01/25 09:43 Review of Systems Review of Systems: Constitutional: No fever, chills, fatigue, night sweats, weight changes ENT/Mouth: No ear pain, hearing loss, nasal congestion, sinus pain, rhinorrhea, sore throat Eyes: No eye pain, swelling, redness, vision changes, discharge Cardio: No chest pain, palpitations, SHEIKH, orthopnea, peripheral edema Pulm: No SOB, cough, sputum, wheezing, dyspnea, hemoptysis GI: No nausea, vomiting, hematemesis, abdominal pain, diarrhea, constipation, hematochezia, melena : No irregular bleeding, dysuria, frequency, urgency, hesitancy, hematuria, flank pain, urinary flow changes, urinary incontinence or retention MSK: No back pain, neck pain, joint pain, myalgias, +L knee pain Skin: No lesions, rashes Neuro: No weakness, numbness, paresthesias, LOC, dizziness, headache Psych: No anxiety/panic, depression, SI/HI, AH/VH All other systems reviewed and are negative. REPLACED BY [facility] Past Medical History Attestation statement: The following information was validated with the patient. Source: old records reviewed and nursing notes reviewed Surgical History No pertinent past surgical history Family History Family History Mother No problems noted. Father No problems noted. Social History Social History Current occupational status: employed Current occupation: Physical Exam Vital Signs: Vital Signs: Last Vital Signs Temp 97.9 F 01/01/25 11:08 Pulse 69 01/01/25 11:08 Resp 16 01/01/25 11:08 BP 140/96 H 01/01/25 11:08 Pulse Ox 100 01/01/25 11:08 O2 Del Method Room Air 01/01/25 11:08 BMI result Body Mass Index 21.8 hypertensive, vitals otherwise wnl General: Well appearing, in no acute distress. Skin: Warm, dry, intact. No rashes or lesions. Head: Normocephalic, atraumatic. EENT: Hearing is intact b/l. Conjunctiva clear. PERRLA. EOM intact. Moist mucous membranes.? Cardiac: Chest wall symmetric Lungs: Normal respiratory effort without accessory muscle use Ext: +left knee with noted swelling. no overlying redness, deformity. difficulty/ pain with flexion of the left knee. ttp along patella and insertion of the quad tendon. no warmth, crepitus, fluctuance. compartments soft. 2+ pt pulse intact. Neuro: AOx3. Normal speech. ambulating with limping gait. Course Course Course Narrative: CBC without leukocytosis or left shift. h&h stable. inflammatory markers mildly elevated. uric acid elevated to 8.7. when compared to priors, patient appears to be baseline hyperuricemic. his exam is really not consistent with gout or pseudogout - no warmth or redness. xr of the left knee does not demonstrate fracture or effusion. > I reached out to ortho PA taniya who evaluated patient at bedside. concern for quad tendonitis which I agree with given PE findings. will treat with RICE + NSAIDs. michael wrap provided. Taniya will be ordering an outpatient knee MRI for patient and will see patient in his office for follow up. patient is agreeable with plan. > lyme/tick panel pending. patient will be contacted with any abnormal results. lyme arthritis less likely. Patient has remained stable throughout ED visit today. Discussed worrisome signs and symptoms and when to return to the ED. All questions answered at this time. Patient is agreeable with disposition and stable for discharge. Medications Administered Discontinued Medications Generic Name Dose Route Start Last Admin Trade Name Chantel PRN Reason Stop Dose Admin Ibuprofen 600 mg 01/01/25 09:56 01/01/25 10:51 Ibuprofen 600 Mg Tablet PO 01/01/25 09:57 600 mg ONCE ONE Administration Medical Decision Making Medical Decision Making [facility] Narrative: 49 year old male presents to the ED today for evaluation of left knee pain/ swelling x4 days. hypertensive, vitals are otherwise wnl. he is nontoxic appearing and in NAD. On exam of the LLE, left knee with noted swelling. no overlying redness, deformity. difficulty/ pain with flexion of the left knee. ttp along patella and insertion of the quad tendon. no warmth, crepitus, fluctuance. compartments soft. 2+ pt pulse intact. Differential diagnosis includes ligament/ tendon injury, fracture, tendonitis, arthritis. Will obtain xrays to r/o. Lower suspicion for gout/ pseudogout, lyme arthritis however will add on screening labs/ uric acid/ tick/lyme panel. Medicated with motrin for pain. Differential Diagnosis Differential Diagnoses: The differential diagnosis associated with the presentation includes as above. Admission/Observation not indicated. Consult Healthcare Provider Management of the patient was discussed with: Academic Associate (ortho) Lab Data [facility] Lab Attestation statement: I reviewed the patient's lab results. as above. 01/01/25 10:05 01/01/25 10:05 Labs: Lab Results 01/01/25 Range/Units 10:05 WBC 5.4 (4.8-10.8) X10*3/uL RBC 4.12 L (4.60-5.80) X10*6/uL Hgb 13.0 L (14.0-18.0) g/dl Hct 38.3 L (42.0-52.0) % MCV 93.0 (80.0-98.0) fL MCH 31.6 (27.0-33.0) pg MCHC 33.9 (31.0-36.0) g/dl RDW 12.4 (11.0-16.0) % Plt Count 291 (160-400) X10*3/uL MPV 9.7 (9.4-12.4) fL Immature Gran % (Auto) 0.4 (0.0-0.4) % Neut % (Auto) 64.1 (45-73) % Lymph % (Auto) 23.1 (20-40) % Lander % (Auto) 8.9 (2-11) % Eos % (Auto) 2.8 (0-4) % Baso % (Auto) 0.7 (0-2) % Lymph # (Auto) 1.3 (1.2-4.9) X10*3/uL Lander # (Auto) 0.5 (0.1-1.2) X10*3/uL Eos # (Auto) 0.2 (0.0-0.4) X10*3/uL Baso # (Auto) 0.0 (0.0-0.2) X10*3/uL Abs Immat Gran (auto) 0.02 (0.00-0.03) X10*3/uL Absolute Neuts (auto) 3.5 (2.0-8.3) x10*3/uL Absolute Nucleated RBC 0.000 (0.0-0.012) X10*3/uL Nucleated RBC % (auto) 0.0 (0.0-0.2) /100WBC ESR 16 H (0-15) MM/HR Sodium 144 (135-145) mmol/L Potassium 4.0 (3.3-5.1) mmol/L Chloride 110 H (96-108) mmol/L Carbon Dioxide 25 (22-29) mmol/L Anion Gap 13 (12-20) BUN 25 H (9-16) mg/dL Creatinine 1.23 (0.5-1.4) mg/dL Estim Creat Clear Calc 70.8 Estimated GFR > 60 Random Glucose 112 (60-115) mg/dL Uric Acid 8.7 H (3.4-7.0) mg/dL Calcium 9.5 D (8.4-10.2) mg/dL Total Bilirubin 0.5 (0.0-1.0) mg/dL AST 30 (5-37) U/L ALT 21 (0-40) U/L Alkaline Phosphatase 62 (39-117) U/L C-Reactive Protein 0.64 H (< or = 0.50) mg/dL Total Protein 7.5 (6.5-8.0) g/dL Albumin 4.5 (3.5-5.0) g/dL Independent Interpretation I performed an independent interpretation of an: Plain X-Ray Interpretation: xr left knee without effusion or fracture Radiology Impression Discussion of test interpretation with radiology: I have reviewed the radiologist's reading. Radiologist Impression: Procedure(s): XR knee LT 4V Accession Number(s): [id number] cc: JOHN QUIÑONEZ MD; Janay Lopez~ EXAMINATION: XR KNEE 4 OR MORE VIEWS LEFT HISTORY: pain, swelling, cannot flex COMPARISON: Comparison is made with the prior examination dated 01/04/2023. FINDINGS: Four views of the left knee are submitted. Osseous mineralization is normal. There is no fracture or dislocation. The joint spaces are preserved. The soft tissues are unremarkable. There is no joint effusion. XR/XR knee LT 4V IMPRESSION: Unremarkable examination of the left knee. Electronically signed by: Joe Angel MD 01/01/2025 10:18 AM EDT Prescription Management I considered prescription management with: Pain Medication Social Determinants Patient?s care significantly limited by Social Determinants of Health including: Other Social Determinant of Health Procedures Orthopedic Splinting/Casting Injury #1: Side: left Lower Extremity Injury Location: knee Lower Extremity Immobilizer: Michael wrap Critical Care Time Critical Care Time Critical Care Time: No Discharge Plan Discharge Clinical Impression: Quadriceps tendinitis, Elevated blood uric acid level Patient Disposition: Home, Self-Care Instructions: Prednisone (By mouth), Low Purine Diet (ED), Tendinitis (ED) Additional Instructions: You were evaluated in the ED today for left knee pain/swelling. x-rays of your left knee do not show effusion or fracture. Your blood work is reassuring although does show an elevated uric acid level. See home care instructions regarding diet changes. Your tick panel/ lyme testing are still pending. You will be contacted with any positive results that require treatment. You were evaluated by our Orthopedic PA Taniya. There is concern for inflammation of the quadriceps tendon. Treatment for this is RICE- rest, ice, compress, and elevate the knee above heart level. I recommend NSAIDs for pain/swelling. Follow up with orthopedics outpatient. They will be ordering an outpatient MRI of your knee. Return with any new or worsening symptoms. In the case of an emergency call 911. Prescriptions: No Action amlodipine 2.5 mg tablet 2.5 mg PO DAILY Referrals: [facility] [Provider Group] - 3 days (Quad tendinitis) John Quiñonez MD [Primary Care Provider] - Interventions: ED Discharge Assessment Last Done: 01/01/25 11:08 Discharge Date/Time: 01/01/25 11:08 Print Language: Afghan
[2025-01-01 10:11] LABS: MANUAL DIFF FLAG NO
[2025-01-01 10:12] LABS: Basophils Percent Auto 0.7 % (0-2); Eosinophils Absolute Auto 0.2 X10*3/uL (0.0-0.4); Eosinophils Percent Auto 2.8 % (0-4); Hematocrit 38.3 % (42.0-52.0); Imm Gran Abs Auto 0.02 X10*3/uL (0.00-0.03); Imm Gran Pct Auto 0.4 % (0.0-0.4); Lymphocytes Absolute Auto 1.3 X10*3/uL (1.2-4.9); Lymphocytes Percent Auto 23.1 % (20-40); Mean Corpuscular HGB Conc 33.9 g/dl (31.0-36.0); Mean Corpuscular Hemoglobin 31.6 pg (27.0-33.0); Mean Platelet Volume 9.7 fL (9.4-12.4); Monocytes Absolute Auto 0.5 X10*3/uL (0.1-1.2); Monocytes Percent Auto 8.9 % (2-11); Neutrophils Absolute Auto 3.5 x10*3/uL (2.0-8.3); Neutrophils Percent Auto 64.1 % (45-73); Platelet Count 291 X10*3/uL (160-400); Red Blood Count 4.12 X10*6/uL (4.60-5.80); Red Cell Distribution Width 12.4 % (11.0-16.0); White Blood Count 5.4 X10*3/uL (4.8-10.8)
[2025-01-01 10:27] LABS: Alanine Aminotransferase 21 U/L (0-40); Albumin Level 4.5 g/dL (3.5-5.0); Alkaline Phosphatase 62 U/L (39-117); Anion Gap 13 (12-20); Aspartate Amino Transferase 30 U/L (5-37); Bilirubin Total 0.5 mg/dL (0.0-1.0); Blood Urea Nitrogen 25 mg/dL (9-16); C Reactive Protein 0.64 mg/dL (< or = 0.50); Calcium 9.5 mg/dL (8.4-10.2); Carbon Dioxide 25 mmol/L (22-29); Chloride 110 mmol/L (96-108); Creatinine Clr Calc Pharmacy 70.8; Estimated Glomerular Filt Rate > 60; Glucose Random 112 mg/dL (60-115); Sodium 144 mmol/L (135-145); Total Protein 7.5 g/dL (6.5-8.0); Uric Acid 8.7 mg/dL (3.4-7.0)
[2025-01-01 10:51] LABS: Erythrocyte Sedimentation Rate 16 MM/HR (0-15)
[2025-01-01] MEDS: Ibuprofen 600 MG TABLET PO (10:51)
[2025-01-01 10:58] VITALS: BP 140/96; PULSE 69; RESP 16; O2SAT 100
[2025-01-01 11:08] VITALS: BP 140/96; PULSE 69; RESP 16; TEMP 36.6; O2SAT 100
[2025-01-02 11:09] LABS: A. Phagocytphilium DNA,RT-PCR NOT DETECTED (NOT DETECTED); Babesia Microti DNA, RT-PCR NOT DETECTED (NOT DETECTED); Borrelia Miyamotoi,DNA RT-PCR NOT DETECTED (NOT DETECTED); E.Chaffeensis DNA RT-PCR NOT DETECTED (NOT DETECTED); Lyme(Borrelia ssp)DNA RT-PCR NOT DETECTED (NOT DETECTED)
[2025-01-02 18:24] LABS: Lyme Abs Screen <0.90 index
== END 2025-01-01 11:08 | disposition home or self-care (01) ==
PROVIDERS: Physician Assistant Medical; Emergency Provider Emergency Medicine Emergency Medical Services; PCP Internal Medicine
DX: M65.262 Calcific tendinitis, left lower leg (principal); R79.89 Other specified abnormal findings of blood chemistry; M25.562 Pain in left knee; Z79.899 Other long term (current) drug therapy
CPT/HCPCS: 36415; 73564; 80053; 84550; 85025; 85652; 86140; 86617; 86618; 87468; 87469; 87478; 87484; 87798; 99283

== ENCOUNTER → 2025-01-01 09:56 | Outpatient (BNV) | payer OTHER, SELFPAY | PROVIDERS: Emergency Provider Emergency Medicine Emergency Medical Services; PCP Internal Medicine; Visit Provider Radiology Diagnostic Radiology | DX: M25.562 Pain in left knee (principal); R22.42 Localized swelling, mass and lump, left lower limb | CPT/HCPCS: 73564 ==

== ENCOUNTER 2025-01-03 19:05 | Outpatient (REF) | payer OTHER, SELFPAY ==
--- NOTE | ~2025-01-03 | MR_ITS ---
EXAMINATION: MR KNEE WITHOUT CONTRAST, LEFT CLINICAL INFORMATION: Left knee pain and swelling, limited extension. History of lateral meniscus tear. COMPARISON: MRI of left knee 01/04/2023. Plain films left knee 01/01/2025. TECHNIQUE: MRI of the left knee without contrast was performed using routine sequences on a 1.5 Andria Siemens high-field scanner. FINDINGS: MENISCI: Medial Meniscus: Intact and normal in signal. Lateral Meniscus: There is an oblique superior surface tear at the junction of the anterior horn and body (series 10, image 24). This has a similar appearance to the prior exam. It extends throughout the anterior horn, into the anterior root entry zone. There are mildly increased small adjacent parameniscal cysts. There is no new tear. LIGAMENTS: Anterior Cruciate: Mild stable mucoid degeneration, with fibers appearing intact. Posterior Cruciate: Intact and normal in signal. Medial Collateral: Intact. Mild thickening of the mid to superior ligament in keeping with sequela of old injury. Lateral Collateral Complex: The biceps femoris tendon, conjoined tendon, fibular collateral ligament, and popliteus tendon are intact and normal in signal. EXTENSOR MECHANISM: There is a delamination type tear of the distal quadriceps tendon (series 8, images 1-6). There is abutting soft tissue edema ventrally. Extensor mechanism is otherwise intact. PATELLAR RETINACULUM: Intact and normal in signal. Medial patellofemoral ligament appears intact. BONE: There is a small focus of bone marrow edema in the superior patella abutting the quadriceps insertion. There is no additional bone marrow edema or abnormal infiltrating bone marrow signal. JOINTS/CARTILAGE: Medial Compartment: Normal . No cartilaginous defects. Lateral Compartment: Normal . No cartilaginous defects. Patellofemoral Compartment: Normal. No cartilaginous defects. There is a small superior patellar enthesophyte. JOINT FLUID AND BURSAE: There is fluid within the prepatellar bursa with adjacent soft tissue edema, findings suggesting prepatellar bursitis. OTHER: Popliteal fossa structures appear normal. There is mild subcutaneous edema surrounding the mid to inferior knee, most prominent ventrally. MR/MR knee LT wo con IMPRESSION: 1. There is an acute appearing delamination type interstitial tear of the distal quadriceps tendon with abutting soft tissue edema. 2. Similar appearing horizontally oriented superior surface tear of the lateral meniscus at the at the junction of the anterior horn and body, extending throughout the anterior horn into the anterior root entry zone. Minimally increased small adjacent parameniscal cysts. 3. Intact medial meniscus. 4. Stable mild mucoid degeneration of the ACL with fibers appearing intact. 5. Small amount of fluid with adjacent edema in the prepatellar bursa, findings consistent with prepatellar bursitis. Small joint effusion. 6. There is a small superior patellar enthesophyte. 7. There is a tiny amount of bone marrow edema within the most superior patella, near the quadriceps and these enthesis, consistent with mild enthesopathy, likely related to the acute quadriceps tendinous injury. Electronically signed by: Satnam No MD 01/04/2025 12:36 PM EDT
--- OUTSIDE RECORDS SUMMARY | 2025-01-03 19:23 | XMS_ITS | Clinical Summary ---
Author Organization [facility] Facility Address [address] [address] Care Team Providers Care Manager Storage Name Role Phone Nilay Quiñonez MD Primary Care Provider [phone] Allergies Active Allergy Reactions Criticality Noted Date Comments Hornet Venom Other (see comments) 08/13/2016 Medications amLODIPine (NORVASC) 5 MG tablet Take 1 tablet (5 mg total) by mouth 1 (one) time each day 90 tablet 5 04/28/2023 Active Active Problems Problem Noted Date Diagnosed Date Serum creatinine above reference range 3 Overview (02/16/2023): December 2022, test performed at [facility]. Awaiting feedback from patient regarding testing history Cyst of kidney 10/23/2021 Overview (02/16/2023): Incidental, resolved on U/S Nov 2019, at [facility] [place]. Normocytic anemia 10/23/2021 Overview (02/16/2023): Chronic, stable Had full w/u as a resident Essential hypertension 10/11/2018 Overview (02/16/2023): Stable on Lisin 5mg Resolved Problems Problem Noted Date Diagnosed Date Resolved Date FH: Stomach cancer 10/11/2009 3 Overview (02/16/2023): Plans to get screening EGD Allergy to wasp venom 10/11/19962022 Seasonal allergy 10/11/1995 02/16/2023 Immunizations Name Administration Dates Next Due Influenza, MDCK, PF, Quadrivalent 06/19/2020 Influenza, Quadrivalent, Preservative Free 08/11,07/15/2021 Tdap 03/27/2022 Family History Medical History Relation Comments Hypertension Father Hypertension Mother Relation Status Comments Father Alive Mother Alive Social History Tobacco Use Types Packs/Day Years Used Date Smoking Tobacco: Never Tobacco Cessation:Counseling Given: Not Answered Alcohol Use Standard Drinks/Week Comments Never 0 (1 standard drink = 0.6 oz pur e alcohol) Sex and Gender Information Value Date Recorded Sex Assigned at Not on file Legal Sex Male 1:35 PM EDT Gender Identity Not on file Sexual Orientation Not on file Last Filed Vital Signs Vital Sign Reading Time Taken Comments Blood Pressure 110/60 07/20/2023 4:34 PM EDT Pulse 77 07/20/2023 4:34 PM EDT Temperature - - Respiratory Rate - - Oxygen Saturation 99% 07/20/2023 4:34 PM EDT Inhaled Oxygen Concentration - - Weight 71.8 kg (158 lb 3.2 oz) 07/20/2023 4:34 P M EDT Height - - Body Mass Index - - Plan of Treatment Health Maintenance Due Date Last Done Comments Pneumococcal Vaccine: Pediat rics (0 to 5 Years) and At-Risk Patients (6 to 64 Years) (1 of 2 - PCV) 1981 Hepatitis B Vaccine (1 of 3 - 19+ 3-dose series) 1994 Colorectal Cancer Screening: Annual FOBT 2024 Colorectal Cancer Screening: Colonoscopy 2024 Colorectal Cancer Screening: Sigmoidoscopy 2024 Influenza Vaccine (#1) 2024 2, 07/15/2021, 06/19/2020 Insurance COMPREHENSIVE BENEFITS COMPREHENSIVE BENEFITS Care Teams Manager Storage Relationship Specialty Start Date End Date Nilay Quiñonez MD [address] [place] [address], [address] [place] [address] PCP - General Internal Medicine 02/17/23
--- OUTSIDE RECORDS SUMMARY | 2025-01-03 19:23 | XMS_ITS | Encounter Summary ---
Author Organization [facility] Address [address] [facility] [address] [place] [address] Phone Care Team Providers Care Circuit Design Engineer Name Role Phone Nilay Quiñonez MD Primary Care Provider [phone] Encounter Details Date Type Department Care Team (Late st Contact Info) Description 02/22/2023 Telephone [facility] [address] [facility] [address] [place] [address] Angeline [place] Social History Tobacco Use Types Packs/Day Years Used Date Smoking Tobacco: Never Alcohol Use Standard Drinks/Week Comments Never 0 (1 standard drink = 0.6 oz pur e alcohol) Sex and Gender Information Value Date Recorded Sex Assigned at Not on file Legal Sex Male 1:35 PM EDT Gender Identity Not on file Sexual Orientation Not on file documented as of this encounter Plan of Treatment Not on file documented as of this encounter Visit Diagnoses Not on filedocumented in this encounter Care Teams Circuit Design Engineer Relationship Specialty Start Date End Date Nilay Quiñonez MD [address] [place] [address], [address] [place], [place] [id number] PCP - General Internal Medicine 02/17/23 documented as of this encounter
== END 2025-01-03 19:06 | disposition home or self-care (01) ==
LOC: HO.MRI 19:05
DX: M17.12 Unilateral primary osteoarthritis, left knee (principal)
CPT/HCPCS: 73721

== ENCOUNTER → 2025-01-03 19:05 | Outpatient (BNV) | payer OTHER, SELFPAY | PROVIDERS: Visit Provider Radiology Diagnostic Radiology | DX: M23.242 Derangement of anterior horn of lateral meniscus due to old tear or injury, left knee (principal); M17.12 Unilateral primary osteoarthritis, left knee; M76.892 Other specified enthesopathies of left lower limb, excluding foot | CPT/HCPCS: 73721 ==

== ENCOUNTER 2025-01-08 10:26 | Outpatient (AMB) | payer OTHER, SELFPAY ==
--- NOTE | 2025-01-08 10:41 | A.OFFVIS_ITS ---
Intake Visit Reasons: OV-MRI Knee LT review Intake Note: Diana is a 49 year old male who presents today for a Left Knee MRI Review. MRI done 01/03/25: IMPRESSION: 1. There is an acute appearing delamination type interstitial tear of the distal quadriceps tendon with abutting soft tissue edema. 2. Similar appearing horizontally oriented superior surface tear of the lateral meniscus at the at the junction of the anterior horn and body, extending throughout the anterior horn into the anterior root entry zone. Minimally increased small adjacent parameniscal cysts. 3. Intact medial meniscus. 4. Stable mild mucoid degeneration of the ACL with fibers appearing intact. 5. Small amount of fluid with adjacent edema in the prepatellar bursa, findings consistent with prepatellar bursitis. Small joint effusion. 6. There is a small superior patellar enthesophyte. 7. There is a tiny amount of bone marrow edema within the most superior patella, near the quadriceps and these enthesis, consistent with mild enthesopathy, likely related to the acute quadriceps tendinous injury. 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 He denies injury but is an avid runner and exercise enthusiast. He had a period of time about a week ago where he was having severe focal pain over the quadriceps insertion on the patella. He is doing better now with less pain and able to walk around comfortably. An MRI was obtained and he is here today for review. [facility] Surgical History No pertinent past surgical history Family History Mother No problems noted. Father No problems noted. Social History Current occupational status: employed Current occupation: Physical Exam Extrem Other: Point tenderness at the insertion of the superficial quadriceps tendon insertion on the patella. Pain with motion while this point his palpated but otherwise not painful with motion. Results Reviewed Results Reviewed: I personally reviewed relevant radiographs. IMPRESSION: 1. There is an acute appearing delamination type interstitial tear of the distal quadriceps tendon with abutting soft tissue edema. 2. Similar appearing horizontally oriented superior surface tear of the lateral meniscus at the at the junction of the anterior horn and body, extending throughout the anterior horn into the anterior root entry zone. Minimally increased small adjacent parameniscal cysts. 3. Intact medial meniscus. 4. Stable mild mucoid degeneration of the ACL with fibers appearing intact. 5. Small amount of fluid with adjacent edema in the prepatellar bursa, findings consistent with prepatellar bursitis. Small joint effusion. 6. There is a small superior patellar enthesophyte. 7. There is a tiny amount of bone marrow edema within the most superior patella, near the quadriceps and these enthesis, consistent with mild enthesopathy, likely related to the acute quadriceps tendinous injury. Assessment & Plan Assessment & Plan (1) Injury of quadriceps tendon: Code(s): S76.109A - Unspecified injury of unspecified quadriceps muscle, fascia and tendon, initial encounter Category: Medical Plan: Likely chronic low-grade partial tear at the quad insertion on the patella with associated enthesophyte. I recommend R.I.C.E. I discussed this with him. I think I would abstain from running for at least another 4 weeks and no resistance training are heavy duty stress full activities. She will let pain be his guide. I do think physical therapy will help him including ultrasound and E stim modalities. Orders: Orders PT Evaluation and Treatment Today S76.109A - Unspecified injury of unspecified quadriceps muscle, fascia and tendon, initial encounter Coding Level of Care Code Est Pt Level 3 (08631) Diagnoses Injury of quadriceps tendon S76.109A
--- OUTSIDE RECORDS SUMMARY | 2025-01-08 11:41 | XMS_ITS | Clinical Summary ---
Author Organization [facility] Facility Address [address] [address] Care Team Providers Care Jet Handler Name Role Phone Nilay Quiñonez MD Primary Care Provider Allergies Active Allergy Reactions Criticality Noted Date Comments Hornet Venom Other (see comments) 08/13/2016 Medications amLODIPine (NORVASC) 5 MG tablet Take 1 tablet (5 mg total) by mouth 1 (one) time each day 90 tablet 5 04/28/2023 Active Active Problems Problem Noted Date Diagnosed Date Serum creatinine above reference range 3 Overview (02/16/2023): December 2022, test performed at [facility]. Awaiting feedback from patient regarding testing history Cyst of kidney 10/23/2021 Overview (02/16/2023): Incidental, resolved on U/S Nov 2019, at [facility] [place]. Normocytic anemia 10/23/2021 Overview (02/16/2023): Chronic, stable [...] Insurance COMPREHENSIVE BENEFITS COMPREHENSIVE BENEFITS Care Teams Jet Handler Relationship Specialty Start Date End Date Nilay Quiñonez MD [address] [place] [address], [address] [place] [address] PCP - General Internal Medicine 02/17/23
--- OUTSIDE RECORDS SUMMARY | 2025-01-08 11:41 | XMS_ITS | Encounter Summary ---
Author Organization [facility] Address [address] [facility] [address] [place] [address] Phone Care Team Providers Care Auto Repair Technician Name Role Phone Nilay Quiñonez MD Primary Care Provider [phone] Encounter Details Date Type Department Care Team (Late st Contact Info) Description 02/22/2023 Telephone [facility] [address] [facility] [address] [place] [address] Angeline Covington Social History Tobacco [...] on filedocumented in this encounter Care Teams Auto Repair Technician Relationship Specialty Start Date End Date Nilay Quiñonez MD [address] [place] [address], [address] [place], [place] [phone] PCP - General Internal Medicine 02/17/23 documented as of this encounter
== END 2025-01-08 11:20 | disposition home or self-care (01) ==
LOC: HO.HOS 10:27
PROVIDERS: Visit Provider Orthopaedic Surgery
DX: S76.102A Unspecified injury of left quadriceps muscle, fascia and tendon, initial encounter (principal)
CPT/HCPCS: 99213

== ENCOUNTER 2025-02-12 13:38 | Outpatient (AMB) | payer OTHER, SELFPAY ==
--- NOTE | 2025-02-12 13:43 | A.OFFVIS_ITS ---
Intake Visit Reasons: New prob-Rt Achilles tendinitis Intake Note: Diana is a 49 year old male who presents today for a new problem visit for evaluation of right Achilles tendinitis. He has been attending physical therapy where they have been addressing his concerns. He has been utilizing a tall walking boot with wedges. Patient reports that he discontinued use of the boot and wedge on Wednesday as he was having swelling in his forefoot. Since discontinuing this his symptoms have improved and is doing well overall Allergies No Known Allergies Allergy (Verified 02/12/25 13:43) HPI HPI New prob-Rt Achilles tendinitis: Details: Diana is a 49 year old male who presents today for a new problem visit for evaluation of right Achilles tendinitis. He has been attending physical therapy where they have been addressing his concerns. He has been utilizing a tall walking boot with wedges. Patient reports that he discontinued use of the boot and wedge on Wednesday as he was having swelling in his forefoot. Since discontinuing this his symptoms have improved and is doing well overall [facility] Surgical History No pertinent past surgical history Family History Mother No problems noted. Father No problems noted. Social History Current occupational status: employed Current occupation: MD Physical Exam Extrem Other: Benign exam. 5/5 strength with ankle plantar flexion. No tenderness to palpation. Intact Achilles tendon. Assessment & Plan Assessment & Plan (1) Achilles tendinitis: Code(s): M76.60 - Achilles tendinitis, unspecified leg Category: Medical Plan: Achilles tendonitis after a gentle walk. Recently had some quadriceps tendinitis as well. I can not really explain the etiology of these as he does not seem to be overdoing it but has these acute onset of insertional tendon discomfort that resolve quickly. I recommend gentle activity as tolerated and follow up as needed. Coding Level of Care Code Est Pt Level 3 (58752) Diagnoses Achilles tendinitis M76.60
--- OUTSIDE RECORDS SUMMARY | 2025-02-12 15:07 | XMS_ITS | Clinical Summary ---
Author Organization [facility] Facility Address [address] [address] Care Team Providers Care Case Assembler Name Role Phone Nilay Quiñonez MD Primary Care Provider [phone] Allergies Active Allergy Reactions Criticality Noted Date Comments Hornet Venom Other (see comments) 08/13/2016 Medications amLODIPine (NORVASC) 5 MG tablet Take 1 tablet (5 mg total) by mouth 1 (one) time each day 90 tablet 5 04/28/2023 Active Active Problems Problem Noted Date Diagnosed Date Serum creatinine above reference range 3 Overview (02/16/2023): December 2022, test performed at [facility]. Awaiting feedback from patient regarding testing history Cyst of kidney 10/23/2021 Overview (02/16/2023): Incidental, [place] Nov [place] [facility] [place] Normocytic anemia 10/23/2021 Overview (02/16/2023): Chronic, stable Had full w/u as a resident Essential hypertension 10/11/2018 Overview (02/16/2023): Stable on Lisin 5mg Resolved Problems Problem Noted Date Diagnosed Date Resolved Date FH: Stomach cancer 10/11/2009 3 Overview (02/16/2023): Plans to get screening EGD Allergy to wasp venom 10/11/19962022 Seasonal allergy 10/11/1995 02/16/2023 Immunizations Immunization Administration Dates Next Due Influenza, MDCK, PF, [...] Health Maintenance Due Date Last Done Comments Hepatitis B Vaccine (1 of 3 - 19+ 3-dose series) 1994 Pneumococcal Vaccine: Peds ( 0 to 5 Years) and At-Risk Patients (6 to 49 Years) (1 of 2 - PCV) 1994 Colorectal Cancer Screening: Annual FOBT 2024 Colorectal Cancer Screening: Colonoscopy 2024 Colorectal Cancer Screening: Sigmoidoscopy 2024 Influenza Vaccine (Season Ended) 2025 08/11/2022, 07/15/2021, 06/19/2020 Insurance Comprehensive Benefits Comprehensive Benefits Care Teams Case Assembler Relationship Specialty Start Date End Date Nilay Quiñonez MD [address] [place] [address], [address] [place] [address] PCP - General Internal Medicine 02/17/23
--- OUTSIDE RECORDS SUMMARY | 2025-02-12 15:07 | XMS_ITS | Encounter Summary ---
Author Organization [facility] Address [address] [facility] 200 [place] [address] Phone Care Team Providers Care Fairground Operator Name Role Phone Nilay Quiñonez MD Primary Care Provider [phone] Encounter Details Date Type Department Care Team (Late st Contact Info) Description 02/22/2023 Telephone [facility] [address] [facility] [address] [place] [address] Angeline Covington Social History Tobacco [...] on filedocumented in this encounter Care Teams Fairground Operator Relationship Specialty Start Date End Date Nilay Quiñonez MD [address] [place] [address], [address] [place], [place] [phone] PCP - General Internal Medicine 02/17/23 documented as of this encounter
== END 2025-02-12 14:02 | disposition home or self-care (01) ==
LOC: HO.HOS 13:38
PROVIDERS: PCP Internal Medicine; Visit Provider Orthopaedic Surgery
DX: M76.61 Achilles tendinitis, right leg (principal)
CPT/HCPCS: 99213

== ENCOUNTER → 2025-02-12 13:38 | Outpatient (BNVA) | payer OTHER, SELFPAY | PROVIDERS: PCP Internal Medicine; Visit Provider Orthopaedic Surgery ==

== ENCOUNTER 2025-03-16 13:01 | Outpatient (RCR) | payer OTHER, SELFPAY ==
--- NOTE | 2025-01-19 09:17 | MHC.PT.EP ---
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 ... abstain from running for at least another 4 weeks and no resistance training are heavy duty stress full activities.. let pain be his guide. I do think physical therapy will help him including ultrasound and E stim modalities. Assessment: 49 YO MALE REF TO PT W NON-SURGICAL Lt QUADRICEP TENDON INJURY, ONSET IN DECEMBER 2024. MRI REVEALED delamination type interstitial tear of the distal quadriceps tendon with abutting soft tissue edema.; superior surface tear of the lateral meniscus at the at the junction of the anterior horn and body . 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 HE INITIALLY HAD SIGNIF Lt KNEE ROM DEFICITS AND SPASMS AND WAS PEYTON WRAPPING HIS THIGH. 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 HE PRESENTED TO EVAL TODAY WITH LESS ACUTE SXS-> OBJECTIVE FINDINGS: (+) LUMBOPELVIC ASYMM W LLI EFFECT; STRENGTH DEFICITS IN JODI HIP ER AND Lt HIP EXT/ QUAD, DECR FLEXIB IN Lt > Rt LE, MILD LATERAL PATELLAR DRIFT Lt, AND FLUCTUATING DISCOMFORT IN MID-LATERAL SUPRAPATELLAR / QUAD TENDON REGION. FUNCTIONALLY, THE Pt HAS LIMITED HIS MORE PHYSICALLY DEMANDING ACTIVITIES, HE HAS COMPENSATORY Wt SHIFT W SQUATTING AND MILDLY ALTERED GAIT MECHANICS. THE Pt IS VERY MOTIVATED FOR PT , ADDRESSING THE ABOVE FINDINGS, DEV A PROGRESSIVE HEP, AND GUIDING HIM IN THE JOURNEY OF DECR RISK OF REINJURY W RETURNING TO RUNNING/ ETC. WE DISCUSSED THE PT POC, Pt IS IN AGREEMENT AND WE WILL PROCEED ACCORDINGLY. Frequency and Duration: The patient will be seen 2 x WK x 5 WKS Short Term Goals: *IMPROVE JODI HIP /CALF FLEXIB *INCREASE ACTIV/ Pt'S AWARENESS Lt GLUTE COMPLEX W ADLs -> FITNESS *PROMOTE LUMBOPELVIC SYMMETRY *INITIATE HEP *REDUCE TISSUE TENSION IN Lt (ESPEC LATERAL )QUAD Long-Term Goals: *INDEP HEP AND SELF SX MGMT TECHN-> WFL JODI LEs FLEXIB *Pt RETURN TO RUNNING W/O SXS Lt QUAD *INCREASE Lt LE STRENGTH TH/OUT (ESPEC Lt GLUTE COMPLEX)-> EQUIV TO Rt LE , AND JODI HIP ER WFL STRENGTH *IMPROVED LEFI (AT EVAL 48/80)-> RESUME REG ADLs, EFFICIENT BODY MECHANICS *Lt LE SLS x 15 SEC Treatment Plan: Modalities to reduce pain, spasms and effusion. Manual therapy to restore motion and function. Therapeutic exercise to improve strength and flexibility. Neuromuscular re-education for posture and balance. Therapeutic activities to return to functional activities of daily living. Electronically signed by: STEPHENIE LUONG,PT Please sign and return to therapist. Thank you for your referral.
--- NOTE | 2025-05-04 14:32 | MHC.PT.DC ---
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 ... abstain from running for at least another 4 weeks and no resistance training are heavy duty stress full activities.. let pain be his guide. I do think physical therapy will help him including ultrasound and E stim modalities. Date of Surgery: Date of Evaluation: 01/18/25 Date of Discharge: 05/04/25 Treatments to Date: 8 Cancellations to Date: No Shows to Date: Discharge Status: Achieved Goals Improved Function Independent with HEP Patient Elected to Stop Discharge Summary: DR CESPEDES PRESENTED W/O ANY EXTERNAL SUPPORT FOR Rt ANKLE/ ACHILLES', W DECENT GAIT [facility]- WE DISCUSSED WARM UP/ COOL DOWN EXER ANS WELL PROGR EX FOR HEP TO ADDRESS CORE STAB/ HIP FLEXIB/ DYNAKIC BALANCE/ PROPRIOCEPTION-> ALL FOR INJURY PREVENTION- HE DENIES Lt QUAD SXS AND HIS Rt ACHILLES' IRRIT HAD EASED W CURRENT LIMITED ACTIVITY - WE DISCUSSED IMPORTANCE OF FURTHER RESTRICTING RUNNING/ HIGHER LEVEL TASKS. HIS LEFI TODAY AT IS 72/80 AND AT EVAL, 48/ 80. WE AGREED TO LEAVE THE CHART/RECORD OPEN FOR 2-[address] CESPEDES FEELS READY FOR D/C FROM PT AT THIS TIME. Electronically signed by: STEPHENIE LUONG,PT Please sign and return to therapist. Thank you for your referral.
== END 2025-05-04 14:33 | disposition home or self-care (01) ==
LOC: HO.PT 13:01
PROVIDERS: PCP Internal Medicine; Visit Provider Orthopaedic Surgery
DX: S76.109A Unspecified injury of unspecified quadriceps muscle, fascia and tendon, initial encounter (principal)
CPT/HCPCS: 97110; 97112; 97116; 97140; 97162; 97530

== ENCOUNTER 2025-03-19 15:05 | Outpatient (REF) | payer OTHER, SELFPAY ==
--- NOTE | ~2025-03-19 | US_ITS ---
EXAMINATION: US KIDNEY BILATERAL HISTORY: N28.1 - Cyst of kidney, acquired TECHNIQUE: Real-time grayscale ultrasound imaging of the kidneys was performed and images were reviewed. COMPARISON: Comparison is made with the prior examination dated 05/08/2024. FINDINGS: Right kidney: The right kidney measures 9.3 x 4.7 x 5.2 cm. Renal parenchymal echotexture and thickness are normal. There is a 6 x 3 x 5 mm cyst at the lower pole. There is no hydronephrosis or renal calculi. Left Kidney: The left kidney measures 10.7 x 4.5 x 4.9 cm. Renal parenchymal echotexture and thickness are normal. Again seen is a septated cyst at the upper pole measuring 1.9 x 2.1 x 1.9 cm, similar in size to the prior study. There is no hydronephrosis or renal calculi. US/US renal BI IMPRESSION: 1.9 x 2.1 x 1.9 cm septated cyst at the upper pole of the left kidney, similar in size to the prior study. Electronically signed by: Joe Angel MD 03/19/2025 03:41 PM EDT
--- OUTSIDE RECORDS SUMMARY | 2025-03-19 16:53 | XMS_ITS | Clinical Summary ---
Author Organization [facility] Facility Address [address] [address] Care Team Providers Care Cut And Print Machine Operator Name Role Phone Nilay Quiñonez MD Primary Care Provider [phone] Allergies Active Allergy Reactions Criticality Noted Date Comments Hornet Venom Other (see comments) 08/13/2016 Medications amLODIPine (NORVASC) 5 MG tablet Take 1 tablet (5 mg total) by mouth 1 (one) time each day 90 tablet 5 04/28/2023 Active Active Problems Problem Noted Date Diagnosed Date Serum creatinine above reference range 3 Overview (02/16/2023): December 2022, test performed at [facility]. Awaiting feedback from patient regarding testing history Cyst of kidney 10/23/2021 Overview (02/16/2023): Incidental, [place] U/S Nov 2019, [place] [facility] [place] Normocytic anemia 10/23/2021 Overview (02/16/2023): Chronic, stable [...] Insurance Comprehensive Benefits Comprehensive Benefits Care Teams Cut And Print Machine Operator Relationship Specialty Start Date End Date Nilay Quiñonez MD [address] [place] [address], [address] [place] [address] PCP - General Internal Medicine 02/17/23
== END 2025-03-19 15:06 | disposition home or self-care (01) ==
LOC: HO.US 15:05
PROVIDERS: PCP Internal Medicine; Visit Provider Urology
DX: N28.1 Cyst of kidney, acquired (principal)
CPT/HCPCS: 76775

== ENCOUNTER → 2025-03-19 15:06 | Outpatient (BNV) | payer OTHER, SELFPAY | PROVIDERS: PCP Internal Medicine; Visit Provider Radiology Diagnostic Radiology | DX: N28.1 Cyst of kidney, acquired (principal) | CPT/HCPCS: 76775 ==

== ENCOUNTER 2025-05-07 07:19 | Outpatient (REF) | payer OTHER, SELFPAY ==
--- OUTSIDE RECORDS SUMMARY | 2025-05-07 07:21 | XMS_ITS | Encounter Summary ---
Author Organization [facility] Address [address] [facility] [address] [place] [address] Phone Care Team Providers Care Kitchen Manager Name Role Phone Esperanza Marmolejo MD Primary Care Provider + Nilay Quiñonez MD Primary Care Provider [phone] Encounter Details Date Type Department Care Team (Late st Contact Info) Description 08/12/2017 Ancillary Orders Virtual Department [address] [place] [address] Polly Carias PA [address] [place] [address] [email or web address] Acquired cyst of kidney Social History Tobacco Use Types Packs/Day Years Used Date Smoking Tobacco: Never Assessed Sex and Gender Information Value Date Recorded Sex Assigned at Not on file Legal Sex Male 9:29 PM EDT Gender Identity Not on file Sexual Orientation Not on file documented as of this encounter Plan of Treatment Upcoming Encounters Date Type Department Care Team (Late st Contact Info) Description 01/11/2026 9:00 AM EDT Office Visit [facility] [address] [place] [address] Nilay Quiñonez MD [address] [facility], [address] [place] [address] documented as of this encounter Results * US Kidneys (09/30/2017 8:07 AM EST) Anatomical Region Laterality Modality Abdomen, Kidney Ultrasound 09/30/2017 8:09 AM EST Impressions 09/30/2017 8:12 AM EST Stable complex left upper pole cyst. No new renal pathology apparent. POS [id number] Narrative 09/30/2017 8:12 AM EST COMPARISON: 09/10/2016 and FINDINGS: The kidneys are stable in overall size with the right measuring 10.3 x 6.1 cm and the left 10.6 x 6.5 cm in a longitudinal plane. The chronic thinly septated left upper pole cortical cyst is essentially unchanged in size and appearance, currently measuring 2.1 x 2.3 x 2.9 cm with a small peripheral echogenic focus again noted. Renal parenchyma is otherwise stable and no new cyst, mass, hydronephrosis, or nephrolithiasis are detected. Procedure Note Magalie Okeefe MD - 09/30/2017 COMPARISON: 09/10/2016 and FINDINGS: The kidneys are stable in overall size with the right measuring 10.3 x6.1 cm and the left 10.6 x 6.5 cm in a longitudinal plane. The chronicthinly septated left upper pole cortical cyst is essentially unchanged insize and appearance, currently measuring 2.1 x 2.3 x 2.9 cm with a smallperipheral echogenic focus again noted. Renal parenchyma is otherwisestable and no new cyst, mass, hydronephrosis, or nephrolithiasis aredetected. IMPRESSION: Stable complex left upper pole cyst. No new renal pathology apparent. POS [id number] us Polly GARCIA G US RENAL Final Resul t documented in this encounter Visit Diagnoses Diagnosis Acquired cyst of kidney Acquired cyst of kidney documented in this encounter Care Teams Kitchen Manager Relationship Specialty Start Date End Date Esperanza Marmolejo MD [address] [place] [address] PCP - General 08/12/17 10/22/21 Nilay Quiñonez MD [address] [place] [address], [address] [place] [address] [email or web address] PCP - General Internal Medicine 10/23/21 documented as of this encounter Additional Source Comments The information contained in this document represents components of the legal health record. It is not the complete legal health record.[facility]
--- OUTSIDE RECORDS SUMMARY | 2025-05-07 07:21 | XMS_ITS | Encounter Summary ---
Author Organization [facility] Address [address] [facility] [address] [place] [address] Phone Care Team Providers Care Vice President Fixed Income Name Role Phone Nilay Quiñonez MD Primary Care Provider [phone] Encounter Details Date Type Department Care Team (Late st Contact Info) Description 02/22/2023 Telephone [facility] [address] [facility] [address] [place] [address] Angeline Covington Social History Tobacco [...] on filedocumented in this encounter Care Teams Vice President Fixed Income Relationship Specialty Start Date End Date Nilay Quiñonez MD [address] [place] [address], [address] [place], [place] [phone] PCP - General Internal Medicine 02/17/23 documented as of this encounter
[2025-05-07 07:41] LABS: MANUAL DIFF FLAG NO
[2025-05-07 08:16] LABS: Hematocrit 39.7 % (42.0-52.0); Hemoglobin 13.5 g/dl (14.0-18.0); Imm Gran Abs Auto 0.02 X10*3/uL (0.00-0.03); Imm Gran Pct Auto 0.3 % (0.0-0.4); Lymphocytes Absolute Auto 0.9 X10*3/uL (1.2-4.9); Mean Corpuscular HGB Conc 34.0 g/dl (31.0-36.0); Mean Corpuscular Hemoglobin 31.1 pg (27.0-33.0); Mean Corpuscular Volume 91.5 fL (80.0-98.0); NRBC Abs Auto 0.000 X10*3/uL (0.0-0.012); NRBC Pct Auto 0.0 /100WBC (0.0-0.2); Platelet Count 344 X10*3/uL (160-400); Red Blood Count 4.34 X10*6/uL (4.60-5.80); Reticulocytes Absolute 0.045 X10*6/uL (0.026-0.095); White Blood Count 7.4 X10*3/uL (4.8-10.8)
[2025-05-07 08:43] LABS: Alanine Aminotransferase 23 U/L (0-40); Albumin Level 4.2 g/dL (3.5-5.0); Alkaline Phosphatase 60 U/L (39-117); Anion Gap 12 (12-20); Aspartate Amino Transferase 30 U/L (5-37); Blood Urea Nitrogen 24 mg/dL (9-16); Calcium 9.0 mg/dL (8.4-10.2); Carbon Dioxide 25 mmol/L (22-29); Chloride 107 mmol/L (96-108); Estimated Glomerular Filt Rate > 60; Potassium 3.7 mmol/L (3.3-5.1); Sodium 140 mmol/L (135-145); Total Protein 7.2 g/dL (6.5-8.0)
[2025-05-08 16:23] LABS: A. Phagocytphilium DNA,RT-PCR NOT DETECTED (NOT DETECTED); Babesia Microti DNA, RT-PCR NOT DETECTED (NOT DETECTED); Borrelia Miyamotoi,DNA RT-PCR NOT DETECTED (NOT DETECTED); E.Chaffeensis DNA RT-PCR NOT DETECTED (NOT DETECTED); Lyme(Borrelia ssp)DNA RT-PCR NOT DETECTED (NOT DETECTED)
[2025-05-09 01:28] LABS: Lyme Abs Screen <0.90 index
== END 2025-05-07 07:20 | disposition home or self-care (01) ==
LOC: HO.LAB 07:19
PROVIDERS: PCP Internal Medicine; Visit Provider Family Medicine
DX: R50.9 Fever, unspecified (principal)
CPT/HCPCS: 80053; 82550; 83615; 85025; 85045; 85652; 86140; 86617; 86618; 86666; 86753; 87207; 87468; 87469; 87478; 87484; 87798